=== PATIENT | female | born 1945 | race Caucasian/White ===

== ENCOUNTER 2019-09-06 14:19 | Outpatient (CLI) | payer MEDICARE, OTHER, SELFPAY ==
--- NOTE | ~2019-09-06 | XR_ITS ---
XR sinus min 3V 09/06/2019 14:46 Indication: Acute recurrent sinusitis Procedure: 5 views of the paranasal sinuses Comparison: No prior studies for comparison. Findings: There is opacification of the frontal sinuses. There is partial opacification the right max illary sinus. There is rightward nasal septal deviation. No air-fluid levels are demonstrated. Mastoi ds are pneumatized. Impression: 1: Opacification of the frontal and right maxillary sinuses, suspicious for sinusitis. Reviewed, dictated and finalized at location A. Impression: 1: Opacification of the frontal and right maxillary sinuses, suspicious for sin usitis.
[2019-09-06 14:41] LABS: Basophils Absolute Auto 0.1 K/mm3 (0.0-0.1); Basophils Percent Auto 0.9 % (0.2-1.2); Eosinophils Absolute Auto 0.2 K/mm3 (0-0.3); Eosinophils Percent Auto 3.5 % (0-4.4); Hematocrit 40.1 % (37.0-47.0); Hemoglobin 13.4 g/dL (12.0-15.0); Immature Granulocyte Absolute 0.01 K/mm3 (0.00-0.031); Immature Granulocyte Percent A 0.2 % (0-0.5); Lymphocytes Absolute Auto 2.45 K/mm3 (0.9-3.2); Lymphocytes Percent Auto 44.8 % (18.3-44.2); Mean Corpuscular HGB Conc 33.4 g/dl (32-36); Mean Corpuscular Hemoglobin 31.9 pg (26-34); Mean Corpuscular Volume 95.5 fl (80-100); Mean Platelet Volume 10.1 fl (7.4-10.4); Monocytes Absolute Auto 0.6 K/mm3 (0.1-0.6); Monocytes Percent Auto 11.3 % (2.6-8.5); Neutrophils Absolute Auto 2.2 K/mm3 (1.3-6.7); Neutrophils Percent Auto 39.3 % (45.5-73.1); Platelet Count Result 168 k/mm3 (150-375); Red Cell Distribution Width 13.2 % (11.5-14.5); White Blood Count 5.5 K/mm3 (4.5-10.0)
[2019-09-06 15:05] LABS: Erythrocyte Sedimentation Rate 20 mm/hr (0-20)
[2019-09-06 15:14] LABS: Blood Urea Nitrogen 19 mg/dL (7-17); CRP < 0.5 mg/dL (<1.0); Carbon Dioxide 30 mmol/L (22-30); Chloride 105 mmol/L (98-107); Estimated Glomerular Filt Rate 40; Glucose 100 mg/dL (65-105); Potassium 3.5 mmol/L (3.4-5.0); Sodium 141 mmol/L (137-145)
== END 2019-09-06 14:20 | disposition home or self-care (01) ==
PROVIDERS: PCP Internal Medicine; Visit Provider Internal Medicine
DX: J01.91 Acute recurrent sinusitis, unspecified (principal); M06.9 Rheumatoid arthritis, unspecified
CPT/HCPCS: 36415; 70220; 80048; 85025; 85652; 86140

== ENCOUNTER 2019-10-05 09:26 | Outpatient (CLI) | payer MEDICARE, OTHER, SELFPAY ==
--- NOTE | ~2019-10-05 | CT_ITS ---
EXAMINATION: CT abdomen pelvis w con DATE: 10/05/2019 11:16 INDICATION: Left upper quadrant and left lower quadrant abdominal pain TECHNIQUE: Computed tomography (CT) of the abdomen and pelvis was performed with 100 cc Omnipaque 350 intravenous contrast. Automated exposure control and iterative reconstruction technique were employe d. Exam dose: 869.58 mGy-cm total exam DLP. COMPARISON: 10/17/2014 CT pelvis examination FINDINGS: The lung bases are clear of infiltrate or consolidation. Heart size is within normal limits . No pericardial or pleural effusion. Status post cholecystectomy. No bile duct or pancreatic duct dilatation. No hepatic, splenic, pancreatic, and adrenal or renal space-occupying mass lesion is evident. No urin jonny tract calculus or hydroureteronephrosis. Normal caliber of the abdominal aorta with mild atherosclerotic ulcer location of the aorta and iliac arteries. No intraperitoneal or retroperitoneal or pelvic mass lesion or adenopathy or ascites. Normal appendix. Partial colon resection, with suture line at the distal sigmoid colon. Mild colonic diverticulosis; n o CT evidence of diverticulitis. No bowel obstruction or intraperitoneal free air. Small fat-containing umbilical hernia. Status post hysterectomy. The urinary bladder is unremarkable. Degenerative changes of the lower thoracic and lumbar spine. There are degenerative changes at the ap ophyseal joints with associated grade 1 anterolisthesis at L4-5. There is mild retrolisthesis at L5-S 1. No suspicious osteolytic or osteoblastic lesions are noted. IMPRESSION: Status post cholecystectomy Status post hysterectomy Partial colectomy Diverticulosis of the colon; no CT evidence of diverticulitis Reviewed, dictated and finalized at Location A. Reviewed, dictated and finalized at location A.
[2019-10-05 10:30] LABS: Basophils Absolute Auto 0.1 K/mm3 (0.0-0.1); Basophils Percent Auto 1.1 % (0.2-1.2); Eosinophils Absolute Auto 0.3 K/mm3 (0-0.3); Eosinophils Percent Auto 6.7 % (0-4.4); Hematocrit 39.3 % (37.0-47.0); Hemoglobin 13.3 g/dL (12.0-15.0); Immature Granulocyte Absolute 0.01 K/mm3 (0.00-0.031); Immature Granulocyte Percent A 0.2 % (0-0.5); Lymphocytes Absolute Auto 2.04 K/mm3 (0.9-3.2); Lymphocytes Percent Auto 45.3 % (18.3-44.2); Mean Corpuscular HGB Conc 33.8 g/dl (32-36); Mean Corpuscular Hemoglobin 32.2 pg (26-34); Mean Corpuscular Volume 95.2 fl (80-100); Mean Platelet Volume 10.8 fl (7.4-10.4); Monocytes Absolute Auto 0.6 K/mm3 (0.1-0.6); Monocytes Percent Auto 13.6 % (2.6-8.5); Neutrophils Absolute Auto 1.5 K/mm3 (1.3-6.7); Neutrophils Percent Auto 33.1 % (45.5-73.1); Platelet Count Result 188 k/mm3 (150-375); Red Blood Count 4.13 M/mm3 (4.2-5.4); Red Cell Distribution Width 12.8 % (11.5-14.5); White Blood Count 4.5 K/mm3 (4.5-10.0)
[2019-10-05 10:45] LABS: Blood Urea Nitrogen 20 mg/dL (7-17); Calcium 8.8 mg/dL (8.4-10.2); Carbon Dioxide 29 mmol/L (22-30); Chloride 105 mmol/L (98-107); Estimated Glomerular Filt Rate 44; Glucose 97 mg/dL (65-105); Potassium 3.7 mmol/L (3.4-5.0); Sodium 141 mmol/L (137-145)
== END 2019-10-05 09:27 | disposition home or self-care (01) ==
PROVIDERS: PCP Internal Medicine; Visit Provider Internal Medicine
DX: R10.12 Left upper quadrant pain (principal); R10.32 Left lower quadrant pain; K57.92 Diverticulitis of intestine, part unspecified, without perforation or abscess without bleeding
CPT/HCPCS: 36415; 74177; 80048; 85025; Q9967

== ENCOUNTER 2019-10-24 11:07 | Outpatient (CLI) | payer MEDICARE, OTHER, SELFPAY ==
--- NOTE | ~2019-10-24 | CT_ITS ---
EXAMINATION: CT chest wo con EXAM DATE: 10/24/2019 12:01 INDICATION: Solitary pulmonary nodule. TECHNIQUE: Spiral CT of the chest without contrast. Axial, coronal and sagittal images were reviewe d. Coronal maximum intensity pixel images of chest reviewed. The dose-length product (DLP) for this examination was 178.12 mGy-cm. The exposure was tailored according to patient size (auto mA exposur e control), and iterative reconstruction (ASIR) was used as additional dose reduction technique. Comp arison is made to prior examination from 10/22/2018. FINDINGS: Scattered predominantly pleural-based postinfectious residua is unchanged along with some biapical scarring. There is mild bronchiectasis. No new or suspicious pulmonary nodules. There is mil d emphysema. There are no pleural or pericardial effusions. Tracheobronchial tree is patent. The re is no mediastinal, hilar or axillary lymphadenopathy. There is no pneumothorax. Heart normal i n size. There is mild coronary arterial calcification, arterial sclerosis. There are cholecystecto my clips. There is thoracic spondylosis without osteoblastic or osteolytic lesions identified. IMPRESSION: 1. Mild emphysema and bronchiectasis. 2. Stable post infectious residua. Reviewed, dictated and finalized at location A.
== END 2019-10-24 11:08 | disposition home or self-care (01) ==
PROVIDERS: PCP Internal Medicine; Visit Provider Internal Medicine
DX: R91.1 Solitary pulmonary nodule (principal); J43.9 Emphysema, unspecified
CPT/HCPCS: 71250

== ENCOUNTER → 2019-12-29 14:21 | Outpatient (CLI) | payer MEDICARE, OTHER, SELFPAY ==
--- NOTE | ~2019-12-29 | MM_ITS ---
EXAMINATION: MM screening [facility] BI w devin HISTORY: Screening TECHNIQUE: Craniocaudal and mediolateral oblique 3-D tomosynthesis images were obtained and synthetic 2-D images were generated. CAD analysis was submitted and interpreted. COMPARISON: Comparison to multiple prior studies sequentially, with oldest reviewed study dated 08/2015. BREAST PARENCHYMAL COMPOSITION: There are scattered areas of fibroglandular density. FINDINGS: There is no evidence of suspicious mass, calcification, or architectural distortion to sugg est malignancy in either breast. There has been no suspicious interval change. IMPRESSION: 1. No mammographic evidence of malignancy. 2. Recommend routine screening mammography in one year. BI-RADS Category 1: Negative Reviewed, dictated and finalized at location A.
== END ==
PROVIDERS: Visit Provider Internal Medicine
DX: Z12.31 Encounter for screening mammogram for malignant neoplasm of breast (principal)
CPT/HCPCS: 77063; 77067

== ENCOUNTER 2020-05-09 07:34 | Outpatient (CLI) | payer MEDICARE, OTHER, SELFPAY ==
--- NOTE | 2020-06-20 21:15 | WPDHOMESLEEP ---
Sleep Study - Home Unattended Date of Study: 05/09/20 Ordering Provider: David Chowdary MD Interpreting Physician: Rhoda Dietrich MD Home Sleep Study Type: Apnea Link Air Height: 1.68 m Weight: 88.451 kg Body Mass Index: 31.4 Neck Circumference (inches): 14.5 [place]: 10 Reason for Sleep Study Waking throughout the night, palpitations, excessive daytime sleepiness Sleep History Saira Egan is a 75-year-old female who has poor quality sleep. She wakes during the night, sometimes with a stuffy nose, sometimes with pain in her flanks. Her spouse reports that she snores. She has snorted at night, waking herself. 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 She has had 2 previous sleep studies at [facility]. The 2nd sleep study found apnea only in the supine position. She had no intervention since she usually sleeps on her side. She frequently snores, occasionally loudly enough that others complain about it. She occasionally awakens at night with coughing. She rarely awakens from sleep with shortness of breath. She notices fluttering in her heart at night. This happens about every 2 hours. She frequently has trouble sleep with a cold. She rarely wakes up gasping for breath during the night. She rarely has breathing problems at night reported to her by others. She occasionally still easily at night and occasionally notices her heart pounding or beating irregularly at night. She frequently falls asleep during the day, occasionally involuntarily, never while driving. She does not have loss of muscle tone with stroke. She does not fall asleep while exerting physical effort. She does not have daytime difficulties due to excessive sleepiness. She does not feel paralyzed on waking or falling asleep. She rarely has vivid dreamlike scenes upon awakening or falling asleep. She is not afraid to go to sleep. She rarely has nightmares. She rarely remembers her dreams. She occasionally has racing thoughts. She rarely feels sad, depressed or anxious. She occasionally has muscular tension. She does not notice parts of her body jerking. She frequently kicks at night. She rarely has crawling and aching feelings in her legs at night. She occasionally has leg pain during the night. She does not have morning jaw pain. She does not grind her teeth during sleep. She frequently is bothered by pain during the day, frequently is awakened by pain at night and frequently wakes up feeling stiff in the morning. She occasionally wakes up with sore or achy muscles, and rarely wakes up with pain in the neck and spine. She has memory problems and concentration difficulties. She has insomnia. She has frequent morning headaches, palpitations and fatigue. She takes antacids regularly. Normal bedtime is between 11:00 p.m. and 11:30 p.m., taking under 15 minutes to fall asleep. She typically wakes 3-4 times at night. While awake she will turn over and repositioned in bed. Sometimes she sits on the side of the bed. Rarely she walked to the kitchen for a drink of water. She wakes in the morning between 630 and 7:00 a.m.. Weekend schedule is the same. She estimates 6-7 hours of sleep at night plus a nap. Sometimes she wakes up too early and cannot get back to sleep. She takes naps in the afternoon. A short nap may be refreshing. She is usually drowsy in the morning for 2 hours or longer. She feels better in the evening compared to the morning. Habits: She never smoked tobacco. Caffeine 1 coffee and 1 soda daily. No alcohol. No recreational drugs. [facility] Past Medical History Medical History (Updated 06/20/20 @ 21:35 by Rhoda Dietrich MD) Asthma Benign essential hypertension Blurred vision, right eye BMI 31.0-31.9,adult Cataracts, bilateral Colon cancer screening Coronary artery calcification seen on CT scan Creatinine elevation Diverticulitis Encounter for routine adult health examination wit
[2020-06-20 21:41] VITALS: BMI 31.4
== END 2020-05-09 07:35 | disposition home or self-care (01) ==
LOC: ANHCSM 07:34
PROVIDERS: PCP Internal Medicine; Visit Provider Internal Medicine
DX: G47.33 Obstructive sleep apnea (adult) (pediatric) (principal)
CPT/HCPCS: 95806

== ENCOUNTER 2020-06-26 01:26 | Outpatient (CLI) | payer MEDICARE, OTHER, SELFPAY ==
[2020-06-26 19:18] LABS: SARS-CoV-2 RNA PCR Negative
== END 2020-06-26 01:27 | disposition home or self-care (01) ==
LOC: ANHCOVIDDT 01:26
PROVIDERS: PCP Internal Medicine; Visit Provider Internal Medicine Critical Care Medicine
DX: Z01.812 Encounter for preprocedural laboratory examination (principal); Z20.822 Contact with and (suspected) exposure to COVID-19
CPT/HCPCS: C9803; U0003; U0005

== ENCOUNTER 2020-06-28 09:24 | Outpatient (CLI) | payer MEDICARE, OTHER, SELFPAY ==
--- NOTE | 2020-07-25 18:40 | WPDSLEEPSTUD ---
Sleep Study Date of Study: 06/28/20 Ordering Provider: David Chowdary MD Interpreting Physician: Rhoda Dietrich MD Sleep Study Type: CPAP Titration Height: 1.68 m Weight: 88.451 kg Body Mass Index: 31.4 Neck Circumference: 33.02 cm [place]: 10 Reason for Sleep Study Home Sleep Test May 09, 2020 with AHI of 8, snoring and desaturation to 90%, several central apneas; patient presents for CPAP titration. Sleep History Saira Egan is a 75-year-old female who has poor quality sleep. She wakes during the night, sometimes with a stuffy nose, sometimes with pain in her flanks. Her spouse reports that she snores. She has snorted at night, waking herself. 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 She has had 2 previous sleep studies at [facility], which is now [facility] in [place]. The 2nd sleep study found apnea only in the supine position. She had no intervention since she usually sleeps on her side. She frequently snores, occasionally loudly enough that others complain about it. She occasionally awakens at night with coughing. She rarely awakens from sleep with shortness of breath. She notices fluttering in her heart at night. This happens about every 2 hours. She frequently has trouble sleep with a cold. She rarely wakes up gasping for breath during the night. She rarely has breathing problems at night reported to her by others. She occasionally sweats excessively at night and occasionally notices her heart pounding or beating irregularly at night. She frequently falls asleep during the day, occasionally involuntarily, never while driving. She does not have loss of muscle tone with stroke. She does not fall asleep while exerting physical effort. She does not have daytime difficulties due to excessive sleepiness. She does not feel paralyzed on waking or falling asleep. She rarely has vivid dreamlike scenes upon awakening or falling asleep. She is not afraid to go to sleep. She rarely has nightmares. She rarely remembers her dreams. She occasionally has racing thoughts. She rarely feels sad, depressed or anxious. She occasionally has muscular tension. She does not notice parts of her body jerking. She frequently kicks at night. She rarely has crawling and aching feelings in her legs at night. She occasionally has leg pain during the night. She does not have morning jaw pain. She does not grind her teeth during sleep. She frequently is bothered by pain during the day, frequently is awakened by pain at night and frequently wakes up feeling stiff in the morning. She occasionally wakes up with sore or achy muscles, and rarely wakes up with pain in the neck and spine. She has memory problems and concentration difficulties. She has insomnia. She has frequent morning headaches, palpitations and fatigue. She takes antacids regularly. Normal bedtime is between 11:00 p.m. and 11:30 p.m., falling asleep within 15 minutes. She typically wakes 3-4 times at night. While awake, she will turn over and repositioned in bed. Sometimes she sits on the side of the bed. Rarely she walks to the kitchen for a drink of water. She wakes in the morning between 6:30 and 7:00 a.m.. Weekend schedule is the same. She estimates 6-7 hours of sleep at night plus a nap. Sometimes she wakes up too early and cannot get back to sleep. She takes naps in the afternoon. A short nap may be refreshing. She is usually drowsy in the morning for 2 hours or longer. She feels better in the evening compared to the morning. Habits: She never smoked tobacco. Caffeine 1 coffee and 1 soda daily. No alcohol. No recreational drugs. [facility] Past Medical History Medical History (Updated 07/25/20 @ 19:20 by Rhoda Dietrich MD) Asthma Benign essential hypertension Blurred vision, right eye BMI 31.0-31.9,adult BMI 32.0-32.9,adult Cataracts, bilateral CKD (chronic kidney disease) Colon cancer screening Coronary artery ca
[2020-07-25 18:42] VITALS: BMI 31.4
== END 2020-06-28 09:25 | disposition home or self-care (01) ==
LOC: ANHCSM 09:25
PROVIDERS: PCP Internal Medicine; Visit Provider Internal Medicine
DX: G47.33 Obstructive sleep apnea (adult) (pediatric) (principal)
CPT/HCPCS: 95811

== ENCOUNTER → 2021-01-01 09:46 | Outpatient (CLI) | payer MEDICARE, OTHER, SELFPAY ==
--- NOTE | ~2021-01-01 | CT_ITS ---
EXAMINATION: CT diagnostic chest wo con DATE: 01/01/2021 10:12 INDICATION: Pulmonary nodules TECHNIQUE: Computed tomography (CT) of the chest was performed without intravenous contrast. The dose -length product (DLP) was 439.88 mGy-cm. Automated exposure control and iterative reconstruction tech [employer] were employed. COMPARISON: 10/24/2019, 10/22/2018 FINDINGS: There is stable right upper lobe nodules measuring up to 4 mm. A stable 3 mm nodule is pres ent in the right lower lobe. Stable nodules are also noted in the major fissures, likely fissural lym ph nodes. No new pulmonary nodules are identified. There is atelectasis of the lingula and middle lob e. There is no pleural effusion or pneumothorax. Scarring is noted in the lung apices. No pathologica lly enlarged thoracic lymph nodes are identified. The heart size is normal. Calcified coronary artery atherosclerosis is noted. The gallbladder is surgically absent. A small sliding hiatal hernia is not ed. There is mild thoracic spondylosis. IMPRESSION: 1. Stable lung nodules consistent with old granulomatous disease. Reviewed, dictated and finalized at location B.
--- NOTE | ~2021-01-01 | DEXA_ITS ---
Bone Density Report Name: Saira Egan Age: 75 Sex: Female Ethnicity: White Date of : 1945 Indication: monitoring treatment; history of glucocorticoids; prior fracture; asthma or emphysema; hysterectomy; rheumatoid arthritis; postmenopausal Referring Provider: CAMPBELL VALENCIA Study: Bone densitometry was performed. Exam Date: January 01, 2021 Accession number: [id number] Bone Density: Region BMD T-score Z-score Classification AP Spine (L1-L4) 1.195 1.3 3.7 Normal Femoral Neck (Left) 0.711 -1.2 0.8 Osteopenia Total Hip (Left) 0.844 -0.8 0.9 Normal Femoral Neck (Right) 0.800 -0.4 1.6 Normal Total Hip (Right) 0.872 -0.6 1.1 Normal Total Hip Mean 0.858 -0.7 1.0 Normal World Health Organization criteria for BMD impression classify patients as: Normal (T-score at or above -1.0), Osteopenia (T-score between -1.0 and -2.5), or Osteoporosis (T-score at or below -2.5). 10-year Fracture Risk: FRAX not reported because: Prior hip or vertebral fracture Treated for osteoporosis Previous Exams: Region Exam Age BMD T-score BMD Change BMD Change Date g/cm2 vs Baseline vs Previous AP Spine(L1-L4) 01/01/2021 75 1.195 1.3 0.133* 0.084* 11/18/2018 73 1.112 0.6 0.049* 0.005 08/28/2016 71 1.107 0.5 0.044 0.065 08/27/2015 70 1.042 0.0 -0.020 -0.020 08/18/2013 68 1.063 0.1 Total Hip(Left) 01/01/2021 75 0.844 -0.8 -0.049* 0.002 11/18/2018 73 0.842 -0.8 -0.051* 0.012 08/28/2016 71 0.830 -0.9 -0.064 0.024 08/27/2015 70 0.806 -1.1 -0.088* -0.088* 08/18/2013 68 0.894 -0.4 Total Hip(Right) 01/01/2021 75 0.872 -0.6 -0.032* 0.011 11/18/2018 73 0.861 -0.7 -0.042* 0.027 08/28/2016 71 0.834 -0.9 -0.070 0.017 08/27/2015 70 0.817 -1.0 -0.086* -0.086* 08/18/2013 68 0.903 -0.3 *Denotes significance at 95% confidence level, LSC for AP Spine = 0.022 g/cm2, LSC for Total Hip = 0.027 g/cm2 Clinical Information Provided by Patient: Have had a previous hip or vertebral fracture Has had a low trauma fracture Has taken Glucocorticoids Has rheumatoid arthritis Is being treated for osteoporosis Has used the following medications: Prolia (i.e. denosumab), Vitamin D, Calcium, PREDNESONE Has the following medical conditions: Asthma or Emphysema, Hysterectomy
--- NOTE | ~2021-01-01 | MM_ITS ---
EXAMINATION: MM screening [facility] BI w devin HISTORY: Screening TECHNIQUE: Craniocaudal and mediolateral oblique 3-D tomosynthesis images were obtained and synthetic 2-D images were generated. CAD analysis was submitted and interpreted. COMPARISON: Comparison to multiple prior studies sequentially, with oldest reviewed study dated 10/2016. BREAST PARENCHYMAL COMPOSITION: There are scattered areas of fibroglandular density. FINDINGS: There is no evidence of suspicious mass, calcification, or architectural distortion to sugg est malignancy in either breast. There has been no suspicious interval change. IMPRESSION: 1. No mammographic evidence of malignancy. 2. Recommend routine screening mammography in one year. BI-RADS Category 1: Negative Reviewed, dictated and finalized at location A.
== END ==
PROVIDERS: Visit Provider Internal Medicine
DX: Z12.31 Encounter for screening mammogram for malignant neoplasm of breast (principal); R91.8 Other nonspecific abnormal finding of lung field; Z78.0 Asymptomatic menopausal state; M85.852 Other specified disorders of bone density and structure, left thigh; R92.2 Inconclusive mammogram
CPT/HCPCS: 71250; 77062; 77063; 77066; 77067; 77080; G0279

== ENCOUNTER → 2022-01-16 09:46 | Outpatient (CLI) | payer MEDICARE, SELFPAY ==
--- NOTE | ~2022-01-16 | CT_ITS ---
EXAMINATION: CT diagnostic chest wo con DATE: 01/16/2022 10:05 INDICATION: Lung nodules TECHNIQUE: Computed tomography (CT) of the chest was performed without intravenous contrast. The dose -length product (DLP) was 121.27 mGy-cm. Automated exposure control and iterative reconstruction tech [employer] were employed. COMPARISON: 01/01/2021 FINDINGS: Stable nodules of the right upper lobe measure up to 4 mm. There is a stable 3 mm nodule of the right lower lobe. No new pulmonary nodules are identified. Fissural lymph nodes are noted in the major fissures. No pathologically enlarged thoracic lymph nodes are identified. The heart size is no rmal. Scarring is noted in the lung apices. There is calcified coronary artery atherosclerosis. A sma ll sliding hiatal hernia is noted. The gallbladder is surgically absent. IMPRESSION: 1. Stable lung nodules, consistent with old granulomatous disease. Reviewed, dictated and finalized at location B.
== END ==
PROVIDERS: PCP Internal Medicine; Visit Provider Internal Medicine
DX: R91.8 Other nonspecific abnormal finding of lung field (principal)
CPT/HCPCS: 71250

== ENCOUNTER → 2022-03-05 13:22 | Outpatient (CLI) | payer MEDICARE, SELFPAY ==
--- NOTE | ~2022-03-05 | MM_ITS ---
EXAMINATION: MM screening [facility] BI w devin HISTORY: Screening TECHNIQUE: Craniocaudal and mediolateral oblique 3-D tomosynthesis images were obtained and synthetic 2-D images were generated. CAD analysis was submitted and interpreted. COMPARISON: Comparison to multiple prior studies sequentially, with oldest reviewed study dated 10/2016. BREAST PARENCHYMAL COMPOSITION: There are scattered areas of fibroglandular density. FINDINGS: There is no evidence of suspicious mass, calcification, or architectural distortion to sugg est malignancy in either breast. There has been no suspicious interval change. IMPRESSION: 1. No mammographic evidence of malignancy. 2. Recommend routine screening mammography in one year. BI-RADS Category 1: Negative Reviewed, dictated and finalized at location A.
== END ==
PROVIDERS: PCP Internal Medicine; Visit Provider Internal Medicine
DX: Z12.31 Encounter for screening mammogram for malignant neoplasm of breast (principal)
CPT/HCPCS: 77063; 77067

== ENCOUNTER 2022-07-03 10:14 | Outpatient (CLI) | payer MEDICARE, SELFPAY ==
--- NOTE | ~2022-07-03 | XR_ITS ---
AP and oblique views of the bilateral ribs, and PA and lateral chest radiographs Clinical History: Pain Findings: There is an oblique, mildly displaced fracture at the anterior left sixth rib. No other rib fracture identified. Lungs are clear, without focal consolidation or pleural effusion. Cardiomediast inal contour is within normal limits. Soft tissues are unremarkable. Impression: Oblique, mildly displaced fracture at the anterior left sixth rib. No other fracture seen. Clear lungs. Reviewed, dictated and finalized at location . 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 No other fracture seen. Clear lungs.
== END 2022-07-03 10:15 | disposition home or self-care (01) ==
PROVIDERS: PCP Internal Medicine; Visit Provider Internal Medicine
DX: R07.81 Pleurodynia (principal); S22.32XA Fracture of one rib, left side, initial encounter for closed fracture; X58.XXXA Exposure to other specified factors, initial encounter
CPT/HCPCS: 71046; 71110

== ENCOUNTER → 2023-03-09 10:19 | Outpatient (CLI) | payer MEDICARE, SELFPAY ==
--- NOTE | ~2023-03-09 | DEXA_ITS ---
Bone Density Report Name: PEARL WILSON Age: 78 Sex: Female Ethnicity: White Date of : 1945 Indication: monitoring treatment; history of glucocorticoids; prior fracture; asthma or emphysema; hysterectomy; rheumatoid arthritis; postmenopausal Referring Provider: CAMPBELL VALENCIA Study: Bone densitometry was performed. Exam Date: March 09, 2023 Accession number: [id number] Bone Density: Region BMD T-score Z-score Classification AP Spine (L1-L4) 1.240 1.8 4.2 Normal Femoral Neck (Left) 0.738 -1.0 1.1 Normal Total Hip (Left) 0.864 -0.6 1.2 Normal Femoral Neck (Right) 0.790 -0.5 1.6 Normal Total Hip (Right) 0.886 -0.5 1.4 Normal Total Hip Mean 0.875 -0.6 1.3 Normal World Health Organization criteria for BMD impression classify patients as: Normal (T-score at or above -1.0), Osteopenia (T-score between -1.0 and -2.5), or Osteoporosis (T-score at or below -2.5). 10-year Fracture Risk: FRAX not reported because: All T-scores for Spine Total, Hip Total, Femoral Neck at or above -1.0 Prior hip or vertebral fracture Treated for osteoporosis Previous Exams: Region Exam Age BMD T-score BMD Change BMD Change Date g/cm2 vs Baseline vs Previous AP Spine(L1-L4) 03/09/2023 78 1.240 1.8 0.178* 0.045* 01/01/2021 75 1.195 1.3 0.133* 0.084* 11/18/2018 73 1.112 0.6 0.049* 0.005 08/28/2016 71 1.107 0.5 0.044 0.065 08/27/2015 70 1.042 0.0 -0.020 -0.020 08/18/2013 68 1.063 0.1 Total Hip(Left) 03/09/2023 78 0.864 -0.6 -0.029* 0.020 01/01/2021 75 0.844 -0.8 -0.049* 0.002 11/18/2018 73 0.842 -0.8 -0.051* 0.012 08/28/2016 71 0.830 -0.9 -0.064 0.024 08/27/2015 70 0.806 -1.1 -0.088* -0.088* 08/18/2013 68 0.894 -0.4 Total Hip(Right) 03/09/2023 78 0.886 -0.5 -0.018 0.014 01/01/2021 75 0.872 -0.6 -0.032* 0.011 11/18/2018 73 0.861 -0.7 -0.042* 0.027 08/28/2016 71 0.834 -0.9 -0.070 0.017 08/27/2015 70 0.817 -1.0 -0.086* -0.086* 08/18/2013 68 0.903 -0.3 *Denotes significance at 95% confidence level, LSC for AP Spine = 0.022 g/cm2, LSC for Total Hip = 0.027 g/cm2 Clinical Information Provided by Patient: Have had a previous hip or vertebral fracture Has had a low trauma
--- NOTE | ~2023-03-09 | MM_ITS ---
EXAMINATION: MM screening [facility] BI w devin HISTORY: Screening TECHNIQUE: Craniocaudal and mediolateral oblique 3-D tomosynthesis images were obtained and synthetic 2-D images were generated. CAD analysis was submitted and interpreted. COMPARISON: Comparison to multiple prior studies sequentially, with oldest reviewed study dated 10/2016. BREAST PARENCHYMAL COMPOSITION: There are scattered areas of fibroglandular density. FINDINGS: There is no evidence of suspicious mass, calcification, or architectural distortion to sugg est malignancy in either breast. There has been no suspicious interval change. IMPRESSION: 1. No mammographic evidence of malignancy. 2. Recommend routine screening mammography in one year. BI-RADS Category 1: Negative Reviewed, dictated and finalized at location A.
--- NOTE | ~2023-03-09 | XR_ITS ---
Clinical Indication: Rheumatoid arthritis PA and lateral views of the chest: Comparison: 07/03/2022 Findings: Questionable minimal chronic interstitial disease. No focal consolidation or pleural effusi on. Cardiomediastinal silhouette is within normal limits. Bones and soft tissues are unremarkable. Impression: Questionable minimal chronic interstitial disease. Reviewed, dictated and finalized at location . Impression: Questionable minimal chronic interstitial disease.
== END ==
PROVIDERS: PCP Internal Medicine; Visit Provider Internal Medicine
DX: Z12.31 Encounter for screening mammogram for malignant neoplasm of breast (principal); Z78.0 Asymptomatic menopausal state; M06.9 Rheumatoid arthritis, unspecified; R69 Illness, unspecified; M85.88 Other specified disorders of bone density and structure, other site
CPT/HCPCS: 71046; 77063; 77067; 77080

== ENCOUNTER 2023-03-13 13:56 | Outpatient (CLI) | payer MEDICARE, SELFPAY ==
--- NOTE | ~2023-03-13 | CT_ITS ---
EXAMINATION: CT diagnostic chest wo con DATE: 03/13/2023 14:40 INDICATION: Interstitial lung disease TECHNIQUE: Computed tomography (CT) of the chest was performed without intravenous contrast. The dose -length product (DLP) was 238.71 mGy-cm. Automated exposure control and iterative reconstruction tech nique were employed. COMPARISON: 01/16/2022 FINDINGS: There is scarring of the lung apices. There is mild emphysema. Small stable pulmonary nodul es measure up to 4 mm in the right upper lobe. No pleural effusion or pneumothorax. Fissural lymph no maggy are noted. No pathologically enlarged thoracic lymph nodes are identified. The heart size is norm al. Calcified coronary artery atherosclerosis is noted. Changes of cholecystectomy are noted. IMPRESSION: 1. Stable lung nodules, consistent with old granulomatous disease. Reviewed, dictated and finalized at location F.
== END 2023-03-13 13:57 | disposition home or self-care (01) ==
PROVIDERS: PCP Internal Medicine; Visit Provider Physician Assistant
DX: J84.9 Interstitial pulmonary disease, unspecified (principal); M06.9 Rheumatoid arthritis, unspecified; R91.8 Other nonspecific abnormal finding of lung field
CPT/HCPCS: 71250

== ENCOUNTER 2023-12-31 13:15 | Outpatient (CLI) | payer MEDICARE, SELFPAY ==
--- NOTE | ~2023-12-31 | US_ITS ---
Renal-Bladder ultrasound Clinical History: Chronic kidney disease Technique: Real-time sonographic imaging of the kidneys and urinary bladder was performed. Findings: The right kidney measures 10.7 cm in length and the left kidney measures 10.0 cm. There is no hydronephrosis or renal calculus identified. Renal cortical echogenicity is within normal limits. No renal mass lesion is identified. The urinary bladder is moderately distended at the time of this exam. No intraluminal echoes are iden tified. No abnormal wall thickening is seen. Impression: Unremarkable ultrasound of the kidneys and urinary bladder. Reviewed, dictated and finalized at location M. Impression: Unremarkable ultrasound of the kidneys and urinary bladder.
== END 2023-12-31 13:16 ==
LOC: MICIMG 13:16
PROVIDERS: PCP Internal Medicine; Visit Provider Internal Medicine
DX: N18.2 Chronic kidney disease, stage 2 (mild) (principal)
CPT/HCPCS: 76775

== ENCOUNTER 2024-04-05 13:53 | Outpatient (CLI) | payer MEDICARE, SELFPAY ==
--- NOTE | ~2024-04-05 | XR_ITS ---
CHEST RADIOGRAPH, PA AND LATERAL CLINICAL HISTORY: TB screen . COMPARISON: 03/09/2023 TECHNIQUE: PA and lateral views of the chest. FINDINGS The cardiomediastinal silhouette is unremarkable. The lungs are clear. Visualized osseous structures and soft tissues are unremarkable. No findings to suggest the presence of active or dormant tuberculosis infection IMPRESSION: No focal infiltrate or effusion. Reviewed, dictated and finalized at location A. ER AND PRESSER
== END 2024-04-05 13:54 | disposition home or self-care (01) ==
LOC: MICIMG 13:57
PROVIDERS: PCP Internal Medicine; Visit Provider Internal Medicine
DX: Z51.81 Encounter for therapeutic drug level monitoring (principal); M05.79 Rheumatoid arthritis with rheumatoid factor of multiple sites without organ or systems involvement; Z79.899 Other long term (current) drug therapy
CPT/HCPCS: 71046

== ENCOUNTER 2024-05-26 13:24 | Outpatient (CLI) | payer MEDICARE, SELFPAY ==
--- NOTE | ~2024-05-26 | MM_ITS ---
EXAMINATION: MM screening [facility] BI w devin HISTORY: Screening mammogram TECHNIQUE: Craniocaudal and mediolateral oblique 3-D tomosynthesis images were obtained and synthetic 2-D images were generated. CAD analysis was submitted and interpreted. COMPARISON: 03/09/2023, 03/05/2022, 01/01/2021 BREAST PARENCHYMAL COMPOSITION:Not Dense. There are scattered areas of fibroglandular density. FINDINGS: No suspicious mass, calcification, or architectural distortion are identified in either kerri ast to suggest malignancy. There has been no suspicious interval change. IMPRESSION: No mammographic evidence of malignancy. Recommend routine screening mammography in one year. BI-RADS Category 1: Negative Reviewed, dictated and finalized at location . ER
== END 2024-05-26 13:25 | disposition home or self-care (01) ==
PROVIDERS: PCP Internal Medicine; Visit Provider Internal Medicine
DX: Z12.31 Encounter for screening mammogram for malignant neoplasm of breast (principal)
CPT/HCPCS: 77063; 77067

== ENCOUNTER 2024-06-11 11:34 | Emergency (ER) | payer MEDICARE, SELFPAY ==
--- NOTE | ~2024-06-11 | CT_ITS ---
EXAMINATION: CT brain wo con DATE: 06/11/2024 14:17 INDICATION: Right side headache . TECHNIQUE: Computed tomography (CT) of the head was performed without intravenous contrast. The mA wa s adjusted according to patient size. Iterative reconstruction technique was employed. The dose-lengt h product was 605.33 mGy-cm. COMPARISON: None. FINDINGS: No acute intracranial hemorrhage or extra-axial fluid collection. No hydrocephalus, mass, or herniation. No acute ischemic infarct. Unremarkable dural venous sinus attenuation. No acute osseous abnormality. The aerated spaces are clear. Mild intracranial calcifications. Bilateral lens replacements. IMPRESSION: No acute intracranial process. Reviewed, dictated and finalized at location K. RNMENT AFFAIRS RESEARCHER
[2024-06-11 11:40] VITALS: BP 158/68; PULSE 55; RESP 18; TEMP 36.4; O2SAT 100
[2024-06-11 13:25] VITALS: BP 167/65; PULSE 48; RESP 14; O2SAT 99
[2024-06-11] MEDS: ACETAMINOPHEN 500 MG TABLET 1000 MG PO (13:39)
[2024-06-11 13:48] LABS: Eosinophils Absolute Auto 0.2 K/mm3 (0-0.3); Hematocrit 40.4 % (37.0-47.0); Hemoglobin 13.5 g/dL (12.0-15.0); Immature Granulocyte Absolute 0.01 K/mm3 (0.00-0.031); Immature Granulocyte Percent A 0.2 % (0-0.5); Lymphocytes Percent Auto 40.6 % (18.3-44.2); Mean Corpuscular HGB Conc 33.4 g/dl (32-36); Mean Corpuscular Hemoglobin 32.8 pg (26-34); Mean Corpuscular Volume 98.1 fl (80-100); Mean Platelet Volume 9.8 fl (7.4-10.4); Monocytes Absolute Auto 0.6 K/mm3 (0.1-0.6); Monocytes Percent Auto 14.6 % (2.6-8.5); Neutrophils Absolute Auto 1.6 K/mm3 (1.3-6.7); Neutrophils Percent Auto 38.6 % (45.5-73.1); Platelet Count Result 158 k/mm3 (150-375); Red Blood Count 4.12 M/mm3 (4.2-5.4); Red Cell Distribution Width 14.9 % (11.5-14.5); White Blood Count 4.2 K/mm3 (4.5-10.0)
[2024-06-11 14:01] LABS: Alanine Aminotransferase 27 U/L (6-35); Albumin Level 4.3 g/dL (3.5-5.1); Alkaline Phosphatase 78 U/L (38-126); Anion Gap 6 mmol/L (4-12); Aspartate Amino Transferase 32 U/L (14-36); Bilirubin,Total 0.5 mg/dL (0.2-1.3); Blood Urea Nitrogen 24 mg/dL (7-17); CRP 0.8 mg/dL (<1.0); Calcium 9.3 mg/dL (8.4-10.2); Carbon Dioxide 29 mmol/L (22-30); Chloride 106 mmol/L (98-107); Estimated CRCL calculation 36 ml/min; Estimated Glomerular Filt Rate 40; Glucose 99 mg/dL (65-110); Potassium 4.5 mmol/L (3.4-5.0); Sodium 141 mmol/L (137-145)
[2024-06-11 14:27] LABS: Erythrocyte Sedimentation Rate 30 mm/hr (0-20)
--- NOTE | 2024-06-11 14:58 | ED.GENADULT ---
HPI - General Adult General Chief complaint: Unspecified Stated complaint: Headache Time Seen by Provider: 06/11/24 12:32 Source: patient Mode of arrival: ambulatory Limitations: no limitations History of Present Illness HPI narrative: This is a 79-year-old female, with history of rheumatoid arthritis, presents to the emergency department complaining of new onset headache began this morning. The patient's describes the headache as sharp, rated 6/10 at maximum and 2/10 at present time. They are located on the right side of the head without other radiation. She denies associated weakness, numbness, change/ loss of vision or hearing. She has no other complaints at this time. Related Data Home Medications ?Medication ?Instructions ?Recorded ?Confirmed ?Last Taken ?Type calcium 600 mg (as carbonate)-vit 1 tablet PO DAILY 06/14/19 05/23/24 Unknown History D3 20 mcg (800 unit) chewable tablet (Caltrate plus D) etanercept 50 mg/mL (1 mL) 50 mg subcut WEEKLY 06/14/19 05/23/24 Unknown History subcutaneous syringe (Enbrel) mecobalamin (vitamin B12) 1,000 1,000 mcg sublingual DAILY 06/14/19 05/23/24 Unknown History mcg disintegrating tablet,sublingual methotrexate sodium 2.5 mg tablet 15 mg PO WEEKLY 11/01/20 05/23/24 Unknown History terbinafine HCl 250 mg tablet 250 mg PO .7 days.month 05/05/22 05/23/24 Unknown History biotin 1 mg capsule 1 mg PO DAILY 01/13/24 05/23/24 Unknown History folic acid 1 mg tablet 1 mg PO DAILY 01/13/24 05/23/24 Unknown History loratadine 10 mg tablet (Allergy 10 mg PO DAILY 01/13/24 05/23/24 Unknown History Relief (loratadine)) omeprazole 20 mg capsule,delayed 20 mg PO DAILY 01/13/24 05/23/24 Unknown History release vitamin B complex 1 tablet PO DAILY 01/13/24 05/23/24 Unknown History Probiotic (Align) BYMOUTH 05/23/24 05/23/24 Unknown History acetaminophen 500 mg capsule 500 mg PO DAILY 05/23/24 05/23/24 Unknown History triamcinolone acetonide 55 mcg 2 spray intranasal DAILY PRN 05/23/24 05/23/24 Unknown History nasal spray aerosol (Nasacort) Allergies Allergy/AdvReac Type Severity Reaction Status Date / Time alendronate sodium Allergy Unknown ASTHMA Verified 05/23/24 10:28 EXACERBATION cefprozil Allergy Unknown RASH Verified 05/23/24 10:28 chlorpheniramine Allergy Unknown RASH Verified 05/23/24 10:28 diflunisal Allergy Unknown NAUSEA, Verified 05/23/24 10:28 VOMITING, RASH doxycycline Allergy Unknown RASH Verified 05/23/24 10:28 sulfamethoxazole Allergy Unknown Nausea and Verified 05/23/24 10:28 Vomiting trimethoprim Allergy Unknown Nausea and Verified 05/23/24 10:28 Vomiting TUMERIC Allergy Intermediate Wheezing Uncoded 05/23/24 10:28 ATROPINE SULFATE Allergy Unknown RASH Uncoded 05/23/24 10:28 BROMPHENIRAMINE MALEATE Allergy Unknown RASH Uncoded 05/23/24 10:28 CIPROFLOXACIN HCL Allergy Unknown RASH Uncoded 05/23/24 10:28 DEXTROMETHORPHAN HBR Allergy Unknown RASH Uncoded 05/23/24 10:28 DIPHENHYDRAMINE HCL Allergy Unknown RASH Uncoded 05/23/24 10:28 DIPHENOXYLATE HCL Allergy Unknown RASH Uncoded 05/23/24 10:28 METRONIDAZOLE HCL Allergy Unknown NAUSEA, Uncoded 05/23/24 10:28 VOMITING PHENYLPROPANOLAMINE HCL Allergy Unknown RASH Uncoded 05/23/24 10:28 PSEUDOEPHEDRINE HCL Allergy Unknown Rash Uncoded 05/23/24 10:28 Review of Systems Review of Systems: All systems reviewed & are unremarkable except as noted in HPI and below PMFSH Past Medical History Medical History (Updated 06/11/24 @ 15:00 by Hawk Aguilar MD) BMI 28.0-28.9,adult Peripheral neuropathy Personal history of COVID-19 Sore throat BMI 29.0-29.9,adult Urinary incontinence Osteoporosis IGT (impaired glucose tolerance) 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 Chronic cough COVID May 2022, Rx Paxlovid Trochanteric bursitis of left hip BMI 30.0-30.9,adult Neuroma Encounter for Medicare annual wellness exam Multiple drug allergies MALCOLM on CPAP CKD (chronic kidney disease) BMI 32.0-32.9,adult Obstructive sleep apnea (~04/2020) Sinusitis, chronic Pelvis fracture 2014 Asthma Lung nodules Hyperglycemia, unspecified Coronary artery calcification seen on CT scan History of cataract Cataracts, bilateral Follow up LLQ abdominal pain Diverticulitis LUQ abdominal pain Blurred vision, right eye SVT (supraventricular tachycardia) Reactive airway disease Creatinine elevation Hypersomnolence Multiple allergies GERD (gastroesophageal reflux disease) Insomnia BMI 31.0-31.9,adult Encounter for routine adult health examination without abnormal findings Colon cancer screening Vitamin B12 deficiency Osteopenia Rheumatoid arthritis Hypothyroidism (acquired) Benign essential hypertension On intermediate teacher drug therapy Surgical History Surgical History S/P cataract surgery Bilateral 2020 History of sinus surgery H/O total knee replacement bilateral H/O hysterectomy with oophorectomy Hx of cholecystectomy History of tonsillectomy Family History Family History Other Family history of coronary artery disease Social History Social History Smoking status: Never smoker Second hand tobacco smoke exposure: No Alcohol intake: current Lack of Transportation: No Lack of Food: Never True Current Housing: I Have Housing Concerned About Future Housing: No Difficulty Paying Gas/Electric Bills: No Difficulty Paying for Meds: No Currently Unemployed: No Education: Bachelor's Degree Difficulty w/ Childcare or Family Care: No Living arrangements: with family Gender identity (if verbalized by the patient): Female Exam Narrative: GENERAL: Well-developed, well-nourished, and in no acute distress. HEAD: Normocephalic, atraumatic. no palpable, pulsatile mass of either bahai. EYES: PERRLA and EOMI. ENT: Nares clear, no rhinorrhea or epistaxis. Mucous membranes moist. Oropharynx without tonsillar hypertrophy exudate or other lesions. Bilateral TMs pearly williamson nonbulging CHEST: Clear to auscultation. No respiratory distress. No wheezes rales or rhonchi HEART: Regular rate and rhythm. No murmur heard. Normal peripheral pulses. EXTREMITIES: Normal range of motion. No edema. SKIN: Warm, dry, no rash. NEURO: Alert and oriented x3. Strength 5/5 in all extremities, sensation intact bilaterally, no noted ataxia, cranial nerves 2-12 intact PSYCH: Normal mood and affect. Course Course Emergency Course: 14:58 -CT head not concerning for intracranial hemorrhage or mass. CBC unremarkable. Chemistries demonstrate slightly elevated creatinine of 1.28 with a baseline of 1.4. ESR mildly elevated at 30 though CRP is negative. Considering the patient's history of rheumatoid arthritis, I do not suspect these are elevation in to be concerning for giant cell arteritis. On re-evaluation, the patient states her headache is improved. Will discharge. I discussed the findings and recommendations with the patient. Discussed return and emergency precautions including signs/symptoms of focal neuro deficit and intracranial hemorrhage. The patient voiced understanding and agreement with the plan. All questions answered to her satisfaction. Vital Signs Vital signs: Vital Signs Temperature 97.6 F 06/11/24 11:40 Pulse Rate 55 L 06/11/24 11:40 Respiratory Rate 18 06/11/24 11:40 Blood Pressure 158/68 H 06/11/24 11:40 Pulse Oximetry 100 06/11/24 11:40 Oxygen Delivery Room Air 06/11/24 11:40 Temperature 97.9 F 06/11/24 15:24 Pulse Rate 49 L 06/11/24 15:24 Respiratory Rate 15 06/11/24 15:24 Blood Pressure 144/59 H 06/11/24 15:24 Pulse Oximetry 99 06/11/24 15:24 Oxygen Delivery Room Air 06/11/24 11:40 Medical Decision Making MDM Narrative Medical decision making narrative: Plan: Labs, imaging, pain control, reassess Differential Diagnosis Differential Diagnosis: Intracranial hemorrhage, intracranial mass, headache, giant cell arteritis, other Vital Signs Vital Signs: Vital Signs Temperature 97.6 F 06/11/24 11:40 Pulse Rate 55 L 06/11/24 11:40 Respiratory Rate 18 06/11/24 11:40 Blood Pressure 158/68 H 06/11/24 11:40 Pulse Oximetry 100 06/11/24 11:40 Oxygen Delivery Room Air 06/11/24 11:40 Temperature 97.9 F 06/11/24 15:24 Pulse Rate 49 L 06/11/24 15:24 Respiratory Rate 15 06/11/24 15:24 Blood Pressure 144/59 H 06/11/24 15:24 Pulse Oximetry 99 06/11/24 15:24 Oxygen Delivery Room Air 06/11/24 11:40 Lab Data 06/11/24 13:42 06/11/24 13:42 Labs: Lab Results 01/18/25 Range/Units 13:42 WBC 4.2 L (4.5-10.0) K/mm3 RBC 4.12 L (4.2-5.4) M/mm3 Hgb 13.5 (12.0-15.0) g/dL Hct 40.4 (37.0-47.0) % MCV 98.1 (80-100) fl MCH 32.8 (26-34) pg MCHC 33.4 (32-36) g/dl RDW 14.9 H (11.5-14.5) % Plt Count 158 (150-375) k/mm3 MPV 9.8 (7.4-10.4) fl Immature Gran % (Auto) 0.2 (0-0.5) % Neut % (Auto) 38.6 L (45.5-73.1) % Lymph % (Auto) 40.6 (18.3-44.2) % Trigg % (Auto) 14.6 H (2.6-8.5) % Eos % (Auto) 5.0 H (0-4.4) % Baso % (Auto) 1.0 (0.2-1.2) % Lymph # (Auto) 1.70 (0.9-3.2) K/mm3 Trigg # (Auto) 0.6 (0.1-0.6) K/mm3 Eos # (Auto) 0.2 (0-0.3) K/mm3 Baso # (Auto) 0.0 (0.0-0.1) K/mm3 Abs Immat Gran (auto) 0.01 (0.00-0.031) K/mm3 Absolute Neuts (auto) 1.6 (1.3-6.7) K/mm3 Absolute Nucleated RBC 0.000 (0.0-0.012) K/mm3 Nucleated RBC % 0.0 (0.0-0.2) % ESR 30 H (0-20) mm/hr Sodium 141 (137-145) mmol/L Potassium 4.5 (3.4-5.0) mmol/L Chloride 106 (98-107) mmol/L Carbon Dioxide 29 (22-30) mmol/L Anion Gap 6 (4-12) mmol/L BUN 24 H (7-17) mg/dL Creatinine 1.28 H (0.7-1.0) mg/dL Estim Creat Clear Calc 36 ml/min Estimated GFR 40 L (59 - ) Glucose 99 (65-110) mg/dL Calcium 9.3 (8.4-10.2) mg/dL Total Bilirubin 0.5 (0.2-1.3) mg/dL AST 32 (14-36) U/L ALT 27 (6-35) U/L Alkaline Phosphatase 78 (38-126) U/L C-Reactive Protein 0.8 (<1.0) mg/dL Total Protein 8.0 (6.3-8.2) g/dL Albumin 4.3 (3.5-5.1) g/dL Discharge Plan Discharge Clinical Impression: Headache Qualifiers: Headache type: unspecified Headache chronicity pattern: acute headache Intractability: not intractable Qualified Code(s): R51.9 - Headache, unspecified Patient Disposition: Home, Self-Care Condition: Stable Instructions: Antibiotic Form, Acute Headache (ED) Additional Instructions: You were seen in the emergency department. Your exam is reassuring. A CT scan of the head was not concerning for bleeding in the brain. One lab for inflammation (ESR) was slightly elevated at 30 though a 2nd (CRP) was negative. Your red blood cell and white blood cell counts were normal. Your creatinine is 1.28 today. I recommend Tylenol/ibuprofen as needed for pain and follow-up with her primary care doctor. If you develop new or worsening headaches, weakness/numbness, change/loss of vision/hearing, or if you have other emergent concerns for life, limb, or eyesight, return to the emergency department. Patient Language: Solomon Islander Prescriptions: No Action mecobalamin (vitamin B12) 1,000 mcg tablet,disintegrating 1,000 mcg SUBLINGUAL DAILY Rx Instructions: place tablet under tongue and allow to dissolve for at least30 secs before swallowing Enbrel 50 mg/mL (1 mL) syringe 50 mg SUB-Q WEEKLY Caltrate 600 plus D 600 mg (1,500 mg)-800 unit tablet,chewable 1 tablet PO DAILY methotrexate sodium 2.5 mg tablet 15 mg PO WEEKLY Patient Comments: Takes 6 tablets weekly Fish oil capsule See Rx Instructions BYMOUTH BID Qty: 120 0RF Rx Instructions: Take (2) 1200 U capsules by oral route twice daily. biotin 1 mg capsule 1 mg PO DAILY loratadine [Allergy Relief (loratadine)] 10 mg tablet 10 mg PO DAILY folic acid 1 mg tablet 1 mg PO DAILY omeprazole 20 mg capsule,delayed release(DR/EC) 20 mg PO DAILY vitamin B complex Tablet 1 tablet PO DAILY terbinafine HCl 250 mg tablet 250 mg PO .7 days.month Patient Comments: Takes 1 week out of every month acetaminophen 500 mg capsule 500 mg PO DAILY triamcinolone acetonide [Nasacort] 55 mcg aerosol,spray 2 spray intranasal DAILY PRN Rx Instructions: administer into each nostril Probiotic (Align) BYMOUTH Prolia 60 mg/mL syringe 60 mg subcut [id number] Qty: 1 0RF albuterol sulfate 90 mcg/actuation HFA aerosol inhaler See Rx Instructions .ROUTE .COMPLEX Qty: 8.5 0RF Dose Instruction: INHALE 1 PUFF BY MOUTH EVERY 4 HOURS NEEDED FOR SHORTNESS OF BREATH OR WHEEZING Rx Instructions: INHALE 1 PUFF BY MOUTH EVERY 4 HOURS NEEDED FOR SHORTNESS OF BREATH OR WHEEZING montelukast 10 mg tablet See Rx Instructions .ROUTE .COMPLEX Qty: 90 1RF Dose Instruction: TAKE 1 TABLET BY MOUTH DAILY Rx Instructions: TAKE 1 TABLET BY MOUTH DAILY triamcinolone acetonide 0.1 % cream 1 applic topical BID Qty: 30 0RF nystatin 100,000 unit/gram powder 1 applic topical TID Qty: 30 0RF verapamil 240 mg tablet extended release See Rx Instructions .ROUTE .COMPLEX Qty: 135 2RF Dose Instruction: TAKE 1 AND 1/2 TABLETS BY MOUTH EVERY DAY WITH FOOD Rx Instructions: TAKE 1 AND 1/2 TABLETS BY MOUTH EVERY DAY WITH FOOD Farxiga 10 mg tablet See Rx Instructions .ROUTE .COMPLEX Qty: 90 0RF Dose Instruction: TAKE 1 TABLET BY MOUTH DAILY Rx Instructions: TAKE 1 TABLET BY MOUTH DAILY levothyroxine 137 mcg tablet See Rx Instructions .ROUTE .COMPLEX Qty: 90 0RF Dose Instruction: TAKE 1 TABLET BY MOUTH DAILY Rx Instructions: TAKE 1 TABLET BY MOUTH DAILY diclofenac sodium [Aleve (diclofenac)] 1 % gel 2 g topical TID Qty: 200 0RF Rx Instructions: apply to single elbow, wrist or hand; for hand includes palm/fingers/back of hand Please issue patient 2 x 100 gram tubes. Follow-up/Referrals: David Chowdary MD [Primary Care Provider] - 2 Weeks Time of Disposition: 15:00
[2024-06-11 15:24] VITALS: BP 144/59; PULSE 49; RESP 15; TEMP 36.6; O2SAT 99
== END 2024-06-11 15:20 | disposition home or self-care (01) ==
PROVIDERS: Emergency Provider Preventive Medicine Aerospace Medicine; PCP Internal Medicine
DX: R51.9 Headache, unspecified (principal); I12.9 Hypertensive chronic kidney disease with stage 1 through stage 4 chronic kidney disease, or unspecified chronic kidney disease; N18.9 Chronic kidney disease, unspecified; I25.10 Atherosclerotic heart disease of native coronary artery without angina pectoris; I25.84 Coronary atherosclerosis due to calcified coronary lesion; J45.909 Unspecified asthma, uncomplicated; E53.8 Deficiency of other specified B group vitamins; E03.9 Hypothyroidism, unspecified; G47.33 Obstructive sleep apnea (adult) (pediatric); G62.9 Polyneuropathy, unspecified; K21.9 Gastro-esophageal reflux disease without esophagitis; M06.9 Rheumatoid arthritis, unspecified; M81.0 Age-related osteoporosis without current pathological fracture; R32 Unspecified urinary incontinence; Z96.653 Presence of artificial knee joint, bilateral; Z86.16 Personal history of COVID-19; Z98.42 Cataract extraction status, left eye; Z98.41 Cataract extraction status, right eye; Z90.710 Acquired absence of both cervix and uterus
CPT/HCPCS: 36415; 70450; 80053; 85025; 85652; 86140; 96372; 99284; A9270

== ENCOUNTER 2025-04-06 08:28 | Emergency (ER) | payer MEDICARE, SELFPAY ==
[2025-04-06] VITALS (13 sets, daily range): BP systolic 104–141; BP diastolic 55–97; PULSE 50–58; RESP 12–18; TEMP 36.4; O2SAT 96–100
--- NOTE | ~2025-04-06 | CT_ITS ---
EXAM/PROCEDURE: CT abdomen pelvis w con HISTORY: left sided abdominal pain COMPARISON: 10/05/2019 TECHNIQUE: IV contrast enhanced CT of the abdomen and pelvis performed. FINDINGS: The bowel gas pattern is nonobstructive with no free air or free fluid or pneumatosis seen. No hydroureteronephrosis or obstructing ureteral stones seen. Moderate amount of stool extends to the cecum. No grossly inflamed appendix. Pancreas appears unchanged. The stomach is unopacified and nondistended but no gross acute process seen. No bulky retroperitoneal or mesenteric lymphadenopathy or masses seen. Diffuse degenerative changes throughout the bones with no acute or aggressive bony lesions seen. No gross interval change in lung bases compared to the previous study. Postsurgical changes including cholecystectomy, hysterectomy and partial colectomy again noted. IMPRESSION: No acute findings identified to explain source of patient's symptoms; several chronic appearing findings as above. Reviewed, dictated and finalized at location A. ICAL PUNCH OPERATOR IMPRESSION: No acute findings identified to explain source of patient's symptoms; several c hronic appearing findings as above.
--- OUTSIDE RECORDS SUMMARY | 2025-04-06 08:37 | XMS_ITS | Encounter Summary ---
Author Organization [facility] Address [address] [place] [id number] Care Team Providers Care Column Precaster Name Role Phone David Valencia MD Primary Care Provider [phone] Rhoda Dietrich MD Unavailable [phone] Encounter Details Date Type Department Care Team (Late st Contact Info) Description 10/24/[address] [facility] [place] [place] [id number] Ashley Martinez MD [address] [facility]. [place], [place] [id number] Social History Tobacco Use Types Packs/Day Years Used Date Smoking Tobacco: Never Smokeless Tobacco: Never Alcohol Use Standard Drinks/Week Comments Not Currently 0 (1 standard drink = 0.6 oz pur e alcohol) monthly Comments No Sex and Gender Information Value Date Recorded Sex Assigned at Not on file Legal Sex Female 1:25 PM CDT Gender Identity Not on file Sexual Orientation Not on file documented as of this encounter H&P Notes * Ashley Martinez MD - 10/24/2023 7:36 PM CDT Attending Provider: No att. providers found PCP: DAVID VALENCIA MD Saira Egan is an 78-year-old female. Reason for Admission: * No active hospital problems. * HPI: Mixed incontinence. Presents for bulking agent for intrinsic sphincter deficiency Past Medical History: Diagnosis Date Acid reflux Asthma (HHS/HCC) Diverticulitis Emphysema, unspecified ([facility] HHS/HCC) Hypothyroidism, unspecified Kidney disease takes Farxiga MALCOLM on CPAP PONV (postoperative nausea and vomiting) SVT (supraventricular tachycardia) ([facility]) Wears partial dentures upper Allergies: Allergies Allergen Reactions Cefprozil Rash Ciprofloxacin Rash Diphenoxylate-Atropine Rash Doxycycline Other (see comment) and Rash Other Sulfamethoxazole-Trimethoprim Rash GI intolerance, GI intolerance Fosamax [Alendronate] Cough Pseudoephedrine Other (see comment) other Aspirin Rash Chlorhexidine Gluconate Rash After knee replacement Metronidazole Nausea and Vomiting and Other (see comment) GI intolerance, GI intolerance GI Issues Molds & Smuts Runny Nose Sneezing, stuffy nose, Sneezing, stuffy nose Turmeric Other (see comment) Asthmatic cough Social History Tobacco Use Smoking status: Never Smokeless tobacco: Never Substance Use Topics Alcohol use: Not Currently Comment: monthly Past Surgical History: Procedure Laterality Date BALLON SINUPLASTY BRONCHOSCOPY CARPAL TUNNEL RELEASE Right COLON SURGERY colon resection (18 in of sigmoid) EXCISION INTERDIGITAL NEUROMA EACH Right foot EYE SURGERY Bilateral cataract with lense in right eye HYSTERECTOMY LAPAROSCOPIC CHOLECYSTECTOMY 1994 REMOVAL OF FALLOPIAN TUBE SCREENING COLONOSCOPY TONSILLECTOMY age 19 TOTAL KNEE ARTHROPLASTY Bilateral No family history on file. Travel Exposure: Current Outpatient Medications on File Prior to Visit Medication Sig albuterol sulfate HFA 108 (90 Base) MCG/ACT inhaler Inhale 1 puff into the lungs every 4 (four) hours as needed for Wheezing. B Complex Cap capsule Take 1 capsule by mouth daily. Biotin 1000 MCG Tab Take 1,000 mg by mouth daily. bisacodyl EC (DULCOLAX) 5 MG Tab EC tablet Take 3 tablets (15 mg total) by mouth daily as needed. Calcium Carbonate-Vitamin D (OYSTER SHELL/VITAMIN D) 600-125 MG-UNIT Tab Take 1 tablet by mouth daily. Calcium Magnesium Zinc 333-133-5 MG Tab Take 1 tablet by mouth daily. Cyanocobalamin (B-12) 50 MCG Tab Take 500 mcg by mouth daily. dapagliflozin (FARXIGA) 10 MG tablet Take 1 tablet (10 mg total) by mouth daily. denosumab (PROLIA) 60 MG/ML injection Inject 1 mL (60 mg total) into the skin once. Every 6 months esomeprazole (NEXIUM) 40 MG capsule Take 1 capsule (40 mg total) by mouth daily. etanercept (ENBREL SURECLICK) 50 MG/ML Solution Auto-injector injection Inject 1 mL (50 mg total) into the skin once a week. Takes on thursday folic acid (FOLVITE) 1 MG tablet Take 1 tablet (1 mg total) by mouth daily. levothyroxine (SYNTHROID) 137 MCG tablet Take 1 tablet (137 mcg total) by mouth every morning. loratadine (CLARITIN) 10 MG tablet Take 1 tablet (10 mg total) by mouth daily. [place] 3-6-9 Fatty Acids (OMEGA 3-6-9 COMPLEX) Cap Take 2 tablets by mouth 2 (two) times a day. triamcinolone acetonide (NASACORT) 55 MCG/ACT nasal inhaler 2 sprays by Each Nostril route daily. verapamil (CALAN SR) 240 MG ER tablet Take 1 tablet (240 mg total) by mouth nightly. No current facility-administered medications on file prior to visit. There were no vitals taken for this visit. ROS negative Physical Exam Fixed urethra on exam Assessment: Intrinsic sphincter deficiency Plan: Cystoscopy bulking agent. Understands risks of bleeding, infection, lack of efficacy, need for repeat procedures, urinary retention. Agrees to proceed ASHLEY MARTINEZ MD 10/24/2023 documented in this encounter Plan of Treatment Not on file documented as of this encounter Visit Diagnoses Not on filedocumented in this encounter Care Teams Column Precaster Relationship Specialty Start Date End Date David Valencia MD [address] [facility] [address] [place] [id number] PCP - General INTERNAL MEDICINE 03/16/20 Rhoda Dietrich MD [address] [facility] [address] [place] [address] PULMONARY DISEASE 10/20/23 documented as of this encounter
--- OUTSIDE RECORDS SUMMARY | 2025-04-06 08:37 | XMS_ITS | Encounter Summary ---
Author Organization [facility] Address [address] [place] [address] Care Team Providers Care Compensation Expert Name Role Phone David Chowdary MD Primary Care Provider [phone] Mishel Soto MD Unavailable + Encounter Details Date Type Department Care Team (Late st Contact Info) Description 03/31/2024 [place] Only [facility] [place] [address] [place] [id number] Scanning, Provider Social History Tobacco Use Types Packs/Day Years Used Date Smoking Tobacco: Never Smokeless Tobacco: Never Alcohol Use Standard Drinks/Week Comments No 0 (1 standard drink = 0.6 oz pur e alcohol) AUDIT-C Answer Date Recorded Q1: How often do you have a drink containing alc ohol? 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 WIRER Gender Identity Female 08/18/2018 7:08 AM CDT Sexual Orientation Straight 08/18/2018 7: 08 AM CDT documented as of this encounter Plan of Treatment Not on file documented as of this encounter Procedures Procedure Name Priority Date/Time Associated Diagnosis Comments SCAN - LABS 03/31/2024 documented in this encounter Results * SCAN - LABS (03/31/2024) us Provider Scanning Final Result documented in this encounter Visit Diagnoses Not on filedocumented in this encounter Care Teams Compensation Expert Relationship Specialty Start Date End Date David Chowdary MD PCP - General Internal Medicine 12/03/17 Mishel Soto MD [address] [facility] [address] [place] [address] Consulting Physician Rheumatology 10/24/24 documented as of this encounter
--- OUTSIDE RECORDS SUMMARY | 2025-04-06 08:38 | XMS_ITS | Clinical Summary ---
Author Organization [facility] Address [facility] [place] [address] Care Team Providers Care Barrel Rifler Broach Name Role Phone David Chowdary MD Primary Care Provider [phone] Rhoda Dietrich MD Unavailable [phone] Allergies Active Allergy Reactions Criticality Noted Date Comments Aspirin Rash Low 10/20/2023 Cefprozil Rash Medium 04/07/2012 Chlorhexidine Gluconate Rash Low 10/20/2023 After knee replacement Ciprofloxacin Rash Medium 04/07/2012 Diphenoxylate-Atropine Rash Medium 04/07/2012 Doxycycline Other (see comment),Rash Medium 11/12/2017 Other Alendronate Cough 10/20/2023 Metronidazole Nausea and Vomiting,Other (see comment) Low 04/07/2012 GI intolerance, GI intolerance GI Issues Molds & Smuts Runny Nose Low 04/07/2012 Sneezing, stuffy nose, Sneezing, stuffy nose Pseudoephedrine Other (see comment) 11/12/2017 other Sulfamethoxazole-Trimeth oprim Rash Medium 04/07/2012 GI intolerance, GI intolerance Turmeric Other (see comment) Low 08/20/2018 Asthmatic cough Medications Calcium Magnesium Zinc 333-133-5 MG Tab Take 1 tablet by mouth daily. Active albuterol sulfate HFA 108 (90 Base) MCG/ACT inhaler Inhale 1 puff into the lungs every 4 (four) hours as needed for Wheezing. Active Cyanocobalamin (B-12) 50 MCG Tab Take 500 mcg by mouth daily. Active Calcium Carbonate-Vitam in D (OYSTER SHELL/VITAMIN D) 600-125 MG-UNIT Tab Take 1 tablet by mouth daily. Active [place] 3-6-9 Fatty Acids (OMEGA 3-6-9 COMPLEX) Cap Take 2 tablets by mouth 2 (two) times a day. Active loratadine (CLARITIN) 10 MG tablet Take 1 tablet (10 mg total) by mouth daily. Active triamcinolone acetonide (NASACORT) 55 MCG/ACT nasal inhaler 2 sprays by Each Nostril route daily. Active etanercept (ENBREL SURECLICK) 50 MG/ML Solution Auto-injector injection Inject 1 mL (50 mg total) into the skin once a week. Takes on thursday12/22/2019 Active folic acid (FOLVITE) 1 MG tablet Take 1 tablet (1 mg total) by mouth daily. 06/30/2019 Active levothyroxine (SYNTHROID) 137 MCG tablet Take 1 tablet (137 mcg total) by mouth every morning. Active esomeprazole (NEXIUM) 40 MG capsule Take 1 capsule (40 mg total) by mouth daily. 10/03/2019 Active denosumab (PROLIA) 60 MG/ML injection Inject 1 mL (60 mg total) into the skin once. Every 6 months 01/23/2020 Active bisacodyl EC (DULCOLAX) 5 MG Tab EC tablet Take 3 tablets (15 mg total) by mouth daily as needed. Active Biotin 1000 MCG Tab Take 1,000 mg by mouth daily. Active verapamil (CALAN SR) 240 MG ER tablet Take 1 tablet (240 mg total) by mouth nightly. Active dapagliflozin (FARXIGA) 10 MG tablet Take 1 tablet (10 mg total) by mouth daily. Active B Complex Cap capsule Take 1 capsule by mouth daily. Active montelukast (SINGULAIR) 10 MG tablet Take 1 tablet (10 mg total) by mouth daily. Active Social History Tobacco Use Types Packs/Day Years Used Date Smoking Tobacco: Never Smokeless Tobacco: Never Tobacco Cessation:Counseling Given: Not Answered Alcohol Use Standard Drinks/Week Comments Not Currently 0 (1 standard drink = 0.6 oz pur e alcohol) monthly Comments No Sex and Gender Information Value Date Recorded Sex Assigned at Not on file Legal Sex Female 1:25 PM CDT Gender Identity Not on file Sexual Orientation Not on file Last Filed Vital Signs Vital Sign Reading Time Taken Comments Blood Pressure 153/75 10/29/2023 10:40 AM CDT Pulse 65 10/29/2023 10:40 AM CDT Temperature 36.6 C (97.8 F) 10/29/2023 10:40 AM CDT Respiratory Rate 16 10/29/2023 10:40 AM CDT Oxygen Saturation 99% 10/29/2023 10:40 AM CDT Inhaled Oxygen Concentration - - Weight 84.9 kg (187 lb 2.7 oz) 10/29/2023 7:00 A M CDT Height 167.6 cm (5' 6) 10/29/2023 7:00 AM CDT Body Mass Index 30.21 10/29/2023 7:00 AM CDT Plan of Treatment Health Maintenance Due Date Last Done Comments Hepatitis C 1963 Annual Medicare Wellness Visit 01/29/2012 Dexa Scan (General) 01/29/2012 Zoster Vaccines (2 of 3) 12/22/2012 10/27/2012 RSV Immunization or 60+ Years (1 - 1-dose 75+ series) 2022 DTaP, Tdap and Td Vaccines (3 - Tdap) 07/07/2023 07/07/2013, 06/25/2013 COVID-19 Vaccine ( season) 2025 02/07/2022, 07/26/2021, 01/18/2021, Additional history exists Influenza Adult (#1) 2025 03/14/2019, 03/06/2018, 03/05/2017, Additional history exists Pneumococcal Vaccine: 50+ Years Completed 02/23/2018, 06/25/2013 Hepatitis A Vaccines Aged Out No long er eligible based on patient's age to complete this topic Meningococcal B Vaccine Aged Out No l onger eligible based on patient's age to complete this topic Meningococcal Vaccine Aged Out No lenny cliff eligible based on patient's age to complete this topic RSV Immunizations Under 20 Months Aged Out No longer eligible based on patient's age to complete this topic Medical Devices Implanted Type Area [employer] In[employer] Adjunct Device Identifier Shelf Expiration Date Model / Serial / Lot Bulkamid Urethra Bulking Agent - [id number] Implanted:Qty: 2 on 10/29/2023 by Brain Oscar MD at [facility] N/A: Urethra [employer] 04/23/2026 [id number] / / [id number] Insurance MEDICARE [facility] Care Teams Barrel Rifler Broach Relationship Specialty Start Date End Date David Chowdary MD [address] [place] [id number] PCP - General INTERNAL MEDICINE 03/16/20 Rhoda Dietrich MD [address], [address] [place], [place] [id number] PULMONARY DISEASE 10/20/23
--- OUTSIDE RECORDS SUMMARY | 2025-04-06 08:38 | XMS_ITS | Clinical Summary ---
Author Organization [facility] Address [address] [place] [address] Phone Care Team Providers Care Shuttler Name Role Phone David Chowdary MD Primary Care Provider [phone] Mishel Soto MD Unavailable + Allergies Active Allergy Reactions Criticality Noted Date Comments Alendronic Acid Other (See comments) Low 11/12/2017 Asthma Exacerbation Cefprozil Rash Medium Ciprofloxacin Rash Medium Diphenhydramine Rash Medium Doxycycline Rash Medium Metronidazole Other (See comments) Low GI Issues Sulfamethoxazole-Trimeth oprim Rash Medium Turmeric Other (See comments) Low 08/20/2018 Asthmatic cough Medications albuterol HFA (PROVENTIL HFA,VENTOLIN HFA,PROAIR HFA) 90 mcg/actuation inhaler Inhale 1 puff Active ascorbic acid, vitamin C, (VITAMIN C) 1,000 mg CR tablet 1 tablet (1,000 mg total) Active cyanocobalamin (Vitamin B-12) 100 mcg tabletIndicatio ns:Prevention of Vitamin B12 Deficiency Take 5 tablets (500 mcg total) by mouth Active cetirizine 10 mg capsule 1 capsule daily. Active levothyroxine (SYNTHROID, LEVOTHROID) 137 mcg tablet 1 tablet (137 mcg total) Active montelukast (SINGULAIR) 10 mg tablet 0 8 Active verapamil SR (CALAN SR) 240 mg CR tablet 0 8 Active acetaminophen (TYLENOL) 500 mg tablet Take 1 tablet (500 mg total) by mouth every 6 (six) hours as needed for pain Active docosahexaenoic acid-epa 120-180 mg capsule Take 1,000 mg by mouth Active terbinafine (LamiSIL) 250 mg tablet Take 1 tablet (250 mg total) by mouth every 21 days Takes meds for one week each month for chronic toe fungus Active dapagliflozin (FARXIGA) 10 mg tablet 2 Active vitamin B complex capsule Take 1 capsule by mouth daily Active omeprazole (PriLOSEC) 20 mg capsule TAKE 1 CAPSULE BY MOUTH DAILY 30 MINUTES BEFORE BREAKFAST 4 Active folic acid (FOLVITE) 1 mg tablet Take 1 tablet (1 mg total) by mouth daily 90 tablet 4 4 Active biotin 5,000 mcg tablet,chewable Take by mouth Active etanercept (EnbreL SureClick) 50 mg/mL (1 mL) pen injectorIndicat ions:Seropositi ve rheumatoid arthritis of multiple sites (HCC) Inject 1 mL (50 mg total) under the skin once a week 12 mL 1 5 Active methotrexate 2.5 mg tablet TAKE 6 TABLETS(15 MG) BY MOUTH EVERY 7 DAYS 72 tablet 5 Active denosumab (PROLIA) 60 mg/mL syringe Inject 1 mL (60 mg total) under the skin once 1 mL 5 Active Active Problems Problem Noted Date Diagnosed Date BMI 31.0-31.9,adult 08/20/2018 Primary osteoarthritis 08/20/2018 Age-related osteoporosis wit hout current pathological fracture 08/20/2018 Bronchiectasis without acute exacerbation 2018 Assessment & Plan (07/07/2018 8:23 AM DENTAL LABORATORY TECHNICIAN APPRENTICE): FOB for eval; exlcude opportunistic infection Assessment & Plan (06/30/2018 2:55 PM DENTAL LABORATORY TECHNICIAN APPRENTICE): Seen on CT Minimal sputum production on a daily basis Consider FOB to exclude atypical organisms especially in the setting of immunosuppression. Lung nodules 06/30/2018 Assessment & Plan (06/30/2018 2:57 PM DENTAL LABORATORY TECHNICIAN APPRENTICE): The usual differential for pulmonary nodule includes primary lung cancer (adenocarcinoma, squamous cell carcinoma, and small cell carcinoma), carcinoid tumor, and metastasis from another source (breast, kidney, the thyroid, bladder, colon, kidney, and melanoma. Benign causes include hemangioma, lipoma, and leiomyoma. Infectious causes such as TB, fungal disease, and round pneumonia must be considered. Plan f/u Ct in one year. Rheumatoid arthritis involvi ng multiple sites with positive rheumatoid factor 06/30/2018 Assessment & Plan (06/30/2018 3:02 PM DENTAL LABORATORY TECHNICIAN APPRENTICE): Immunosuppressives per Dr. Soto Diverticulitis of colon 03/05/2012 Encounters Date Type Department Care Team Description 04/03/2025 10:00 AM DENTAL LABORATORY TECHNICIAN APPRENTICE Office Visit [facility] [address], [place] [address] Silvio Davdi MD Age-related osteoporosis without current pathological fracture (Primary Dx); Vitamin D deficiency 03/08/2025 Documentation [facility] Rheumatology at [address] [address] Mishel Soto MD Prolia Injection order [facility] 03/08/2025 Orders Only [facility] [address] [place] [id number] Mishel Soto MD Age-related osteoporosis without current pathological fracture (Primary Dx) 03/08/2025 Orders Only [facility] Rheumatology at [address] [place] [phone] Mishel Soto MD Age-related osteoporosis without current pathological fracture (Primary Dx) 02/20/2025 Orders Only [facility] [id number] David Chowdary MD 01/05/2025 Orders Only [facility] Rheumatology at [address], [place] [address] Mishel Soto MD Seropositive rheumatoid arthritis of multiple sites (HCC) (Primary Dx); Encounter for medication monitoring; Encounter for long-term (current) use of medications from Last 3 Months Immunizations Immunization Administration Dates Next Due COVID-19 MRNA (MODERNA) .5 M L (50 MCG) VACCINE (12 YEARS AND UP) 02/19/2023 COVID-19 mRNA (PFIZER) 0.3 m L (30 mcg) vaccine (12 years and up) 06/09/2024,12/07/2023 DTaP 06/25/2013 Influenza, Quad, Adjuvantate d, Intramuscular 03/02/2020 Influenza, Quadrivalent, Hig h Dose, Preservative Free, Intrr 03/10/2022 Influenza, Trivalent, Adjuva nted, Intramuscular 03/05/2017 Influenza, Trivalent, High D ose, Split, Preservative Free, Intramuscular 03/14/2019,03/06/2018,02/25/2016,03/13 Influenza, Trivalent, IM (MDV) 02/24/2014 Influenza, Unspecified 03/06/2018,02/02/2012 Moderna SARS-CoV-2 Monovalen t Vaccination (12+ YRS) 07/26/2021,08/13/2020,07/12/2020 Moderna Sars-cov-2 Bivalent Vaccine 50 Mcg/0.5 mL (12+ YRS)-Blue/Rocha 02/07/2022 Moderna Sars-cov-2 Monovalen t Booster Vaccination (12+ YRS) 07/26/2021 Moderna Sars-cov-2 Monovalen t Booster Vaccination .25 Ml dose (12+ YRS) 01/18/2021 Pneumococcal Conjugate PCV 13 06/25/2013 Pneumococcal Polysaccharide PPV23 02/24/2018,06/2017 Tetanus toxoid, adsorbed 07/07/2013 ZOSTER LIVE 10/27/2012 Surgical History Surgery Date Site/Laterality Comments KNEE ARTHROPLASTY 2010,2015 Bilateral CARPAL TUNNEL RELEASE 05/25/2015 - 05/24/2016 Right CHOLECYSTECTOMY 05/25/1994 - 05/24/1995 HYSTERECTOMY 05/25/1997 - 05/24/1998 Bilateral OTHER SURGICAL HISTORY right foot neuroma removal REFRACTIVE SURGERY Right OTHER SURGICAL HISTORY Balloon sinusplasty COLECTOMY CATARACT EXTRACTION 12/24/2019 - 01/23/2020 Right Medical History Medical History Date Comments Asthma Arthritis 1979 SVT (supraventricular tachycardia) 1993 Sinusitis chronic Rheumatoid arthritis (HCC) Hypothyroidism Diverticulitis large intestine 09/2019 Cataract both eyes 0 & 01/31/20 CPAP (continuous positive ai rway pressure) dependence 2020 at rest/sleep Family History Medical History Relation Name Comments Heart disease Brother Alzheimer's disease Father Stroke Father Stroke Maternal Grandmother Heart disease Mother Leukemia Paternal Grandmother Relation Name Status Comments Brother Alive Father Maternal Grandmother Mother Paternal Grandmother Social History Tobacco Use Types Packs/Day Years Used Date Smoking Tobacco: Never Smokeless Tobacco: Never Tobacco Cessation:Counseling Given: Not Answered Alcohol Use Standard Drinks/Week Comments No 0 [...] AM CDT Legal Sex Female 3:33 AM DENTAL LABORATORY TECHNICIAN APPRENTICE Gender Identity Female 08/18/2018 7:08 AM CDT Sexual Orientation Straight 08/18/2018 7: 08 AM CDT Last Filed Vital Signs Vital Sign Reading Time Taken Comments Blood Pressure 122/60 04/03/2025 10:00 AM DENTAL LABORATORY TECHNICIAN APPRENTICE Pulse 74 04/03/2025 10:00 AM DENTAL LABORATORY TECHNICIAN APPRENTICE Temperature 36.8 C (98.3 F) 02/05/2023 11:06 AM CDT Respiratory Rate 14 04/03/2025 10:0 0 AM DENTAL LABORATORY TECHNICIAN APPRENTICE Oxygen Saturation 98% 04/14/2024 10: 42 AM DENTAL LABORATORY TECHNICIAN APPRENTICE Inhaled Oxygen Concentration - - Weight 76.6 kg (168 lb 12.8 oz) 025 10:00 AM DENTAL LABORATORY TECHNICIAN APPRENTICE Height 170.2 cm (5' 7) 04/03/2025 10:0 0 AM DENTAL LABORATORY TECHNICIAN APPRENTICE Body Mass Index 26.44 04/03/2025 10:00 AM DENTAL LABORATORY TECHNICIAN APPRENTICE Plan of Treatment Health Maintenance Due Date Last Done Comments Depression Screening 1945 Hepatitis C Screening 1945 Osteoporosis Screening-Bone Density Scan 1945 Hepatitis B Screening 1965 Well Visit 65+ 01/29/2012 Fall Risk Assessment 02/04/2019 02/04/2018 Covid-19 Vaccine (2024-2 6 season) 2025 06/09/2024, 12/07/2023, 02/19/2023, Additional history exists Influenza Vaccine (#1) 2025 , 03/11/2023, 03/14/2022, Additional history exists DTaP/Tdap/Td Vaccine (4 - Td or Tdap) 07/26/2034 07/26/2024, 07/07/2013, 06/25/2013 Pneumococcal vaccine 65+ Completed 018, 02/23/2018, 04/27/2017, Additional history exists Zoster Vaccine Completed 11/13/2022, 08/23, 07/07/2013, Additional history exists Procedures Procedure Name Priority Date/Time Associated Diagnosis Comments COMPREHENSIVE METABOLIC PANEL Routine 04/04/2025 7:52 AM DENTAL LABORATORY TECHNICIAN APPRENTICE Seropositive rheumatoid arthritis of multiple sites ([facility]) Encounter for medication monitoring Encounter for long-term (current) use of medications CBC WITH AUTO DIFFERENTIAL Routine 04/04/2025 7:52 AM DENTAL LABORATORY TECHNICIAN APPRENTICE Seropositive rheumatoid arthritis of multiple sites ([facility]) Encounter for medication monitoring Encounter for long-term (current) use of medications URINE CULTURE Routine 04/04/2025 7:52 AM DENTAL LABORATORY TECHNICIAN APPRENTICE REFLEXIVE URINE CULTURE Routine 04/04/2025 7:52 AM DENTAL LABORATORY TECHNICIAN APPRENTICE URINALYSIS AND REFLEX TO MICROSCOPIC AND CULTURE Routine 04/04/2025 7:52 AM DENTAL LABORATORY TECHNICIAN APPRENTICE Seropositive rheumatoid arthritis of multiple sites ([facility]) Encounter for medication monitoring Encounter for long-term (current) use of medications HEMOGLOBIN A1C Routine 02/20/2025 7:48 AM CDT VITAMIN D 25 HYDROXY Routine 02/20/2025 7:48 AM CDT TSH Routine 02/20/2025 7:48 AM CDT T4, FREE Routine 02/20/2025 7:48 AM CDT BASIC METABOLIC PANEL Routine 02/20/2025 7:48 AM CDT LIPID PANEL Routine 02/20/2025 7:48 AM CDT COMPREHENSIVE METABOLIC PANEL Routine 01/05/2025 10:42 AM CDT Seropositive rheumatoid arthritis of multiple sites (HCC) Encounter for medication monitoring Encounter for long-term (current) use of medications CBC WITH AUTO DIFFERENTIAL Routine 01/05/2025 10:41 AM CDT Seropositive rheumatoid arthritis of multiple sites (HCC) Encounter for medication monitoring Encounter for long-term (current) use of medications REFLEXIVE URINE CULTURE Routine 01/05/2025 10:37 AM CDT URINALYSIS AND REFLEX TO MICROSCOPIC AND CULTURE Routine 01/05/2025 10:37 AM CDT Seropositive rheumatoid arthritis of multiple sites (HCC) Encounter for medication monitoring Encounter for long-term (current) use of medications from Last 3 Months Results * REFLEXIVE URINE CULTURE (04/04/2025 7:52 AM DENTAL LABORATORY TECHNICIAN APPRENTICE) Urine culture [facility] Comment:CULTURE INDICATED - RESULTS TO FOLLOW 04/04/2025 7:52 AM DENTAL LABORATORY TECHNICIAN APPRENTICE 04/04/2025 7:53 AM DENTAL LABORATORY TECHNICIAN APPRENTICE Narrative [facility] - 04/05/2025 6:05 PM DENTAL LABORATORY TECHNICIAN APPRENTICE FASTING:YES FASTING: YES us Mishel Soto MD LAB MICROBIOLOGY - GENERAL ORDERABLES Final Result [facility] [address] [place] [address] * (ABNORMAL) Urinalysis reflex to microscopic and culture Urine, clean voided (04/04/2025 7:52 AM DENTAL LABORATORY TECHNICIAN APPRENTICE) Color, ur YELLOW YELLOW [facility] Appearance, ur CLEAR CLEAR [facility] Specific gravity 1.012 1.001 - 1.035 [facility] pH, ur 5.5 5.0 - 8.0 [facility] Glucose, ur 2+(A) NEGATIVE [facility] Bilirubin, ur NEGATIVE NEGATIVE [facility] Ketones, ur NEGATIVE NEGATIVE [facility] Blood, ur NEGATIVE NEGATIVE [facility] Protein, ur, quant NEGATIVE NEGATIVE [facility] Nitrites, ur NEGATIVE NEGATIVE [facility] Leukocyte esterase, ur TRACE(A) NEGATIVE [facility] WBC, ur 0-5 < OR = 5 /HPF [facility] RBC, ur NONE SEEN < OR = 2 /HPF [facility] Epithelial cells, squamous, ur NONE SEEN < OR = 5 /HPF [facility] Bacteria, ur, quant NONE SEEN NONE SEEN /HPF [facility] Hyaline cast NONE SEEN NONE SEEN /LPF [facility] Note [facility] Comment: This urine was analyzed for the presence of WBC, RBC, bacteria, casts, and other formed elements. Only those elements seen were reported. Urine, clean voided 04/04/2025 7:52 AM DENTAL LABORATORY TECHNICIAN APPRENTICE 04/04/2025 7:53 AM DENTAL LABORATORY TECHNICIAN APPRENTICE Narrative [facility] - 04/05/2025 6:05 PM DENTAL LABORATORY TECHNICIAN APPRENTICE FASTING:YES FASTING: YES Mishel Soto MD LAB MICROBIOLOGY - GENERAL ORDERABLES Final Result [facility] [address] [place] [address] * CBC with auto differential (04/04/2025 7:52 AM DENTAL LABORATORY TECHNICIAN APPRENTICE) WBC 6.1 3.8 - 10.8 Thousand/u L [facility] RBC, POC 4.51 3.80 - 5.10 Million/uL [facility] Hgb 14.4 11.7 - 15.5 g/dL [facility] Hct 44.9 35.0 - 45.0 % [facility] MCV 99.6 80.0 - 100.0 fL [facility] MCH 31.9 27.0 - 33.0 pg [facility] MCHC 32.1 32.0 - 36.0 g/dL [facility] Comment: For adults, a slight decrease in the calculated MCHC value (in the range of 30 to 32 g/dL) is most likely not clinically significant; however, it should be interpreted with caution in correlation with other red cell parameters and the patient's clinical condition. Rdw 13.3 11.0 - 15.0 % [facility] Platelets 232 140 - 400 Thousand/u L [facility] MPV 10.3 7.5 - 12.5 fL [facility] Neutrophils, abs 2,745 1,500 - 7,800 cells/uL [facility] Lymphocytes, abs 2,495 850 - 3,900 cells/uL [facility] Monocyte abs 543 200 - 950 cells/uL [facility] Eosinophils, abs 268 15 - 500 cells/uL [facility] Basophils, abs 49 0 - 200 cells/uL [facility] Neutrophils 45 % [facility] Lymphocyte pct 40.9 % [facility] Monocytes 8.9 % [facility] Eosinophils 4.4 % [facility] Basophils 0.8 % [facility] Blood 04/04/2025 7:52 AM DENTAL LABORATORY TECHNICIAN APPRENTICE 04/04/2025 7:53 AM DENTAL LABORATORY TECHNICIAN APPRENTICE Narrative [facility] - 04/04/2025 7:59 PM DENTAL LABORATORY TECHNICIAN APPRENTICE FASTING:YES FASTING: YES Mishel Soto MD LAB BLOOD ORDERABL ES Final Result [facility] [address] [place] [address] * Urine culture (04/04/2025 7:52 AM DENTAL LABORATORY TECHNICIAN APPRENTICE) Urine culture [facility] Comment: CULTURE, URINE, ROUTINE Micro Number: [id number] Test Status: Final Specimen Source: Urine Specimen Quality: Adequate Result: No Growth 04/04/2025 7:52 AM DENTAL LABORATORY TECHNICIAN APPRENTICE 04/04/2025 7:53 AM DENTAL LABORATORY TECHNICIAN APPRENTICE Narrative [facility] - 04/05/2025 6:05 PM DENTAL LABORATORY TECHNICIAN APPRENTICE FASTING:YES FASTING: YES us Mishel Soto MD LAB MICROBIOLOGY - GENERAL ORDERABLES Final Result [facility] [address] [place] [address] * (ABNORMAL) Comprehensive metabolic panel (04/04/2025 7:52 AM DENTAL LABORATORY TECHNICIAN APPRENTICE) Glucose 95 65 - 99 mg/dL [facility] Comment: Fasting reference interval BUN 28(H) 7 - 25 mg/dL [facility] Creatinine 1.31(H) 0.60 - 1.00 mg/dL [facility] eGFR 42(L) > OR = 60 mL/min/1.7 3m2 [facility] BUN/creat ratio 21 6 - 22 (calc) [facility] Sodium 139 135 - 146 mmol/L [facility] Potassium, pl 4.0 3.5 - 5.3 mmol/L [facility] Chloride 100 98 - 110 mmol/L [facility] CO2 34(H) 20 - 32 mmol/L [facility] Calcium 10.0 8.6 - 10.4 mg/dL [facility] Protein, sr 7.6 6.1 - 8.1 g/dL [facility] Albumin 4.5 3.6 - 5.1 g/dL [facility] GLOBULIN 3.1 1.9 - 3.7 g/dL (calc) [facility] Alb/glob ratio 1.5 1.0 - 2.5 (calc) [facility] Bilirubin, total 0.7 0.2 - 1.2 mg/dL [facility] Alk phos 80 37 - 153 U/L [facility] AST 20 10 - 35 U/L [facility] ALT (SGPT) 17 6 - 29 U/L [facility] Blood 04/04/2025 7:52 AM DENTAL LABORATORY TECHNICIAN APPRENTICE 04/04/2025 7:53 AM DENTAL LABORATORY TECHNICIAN APPRENTICE Narrative [facility] - 04/04/2025 5:11 PM DENTAL LABORATORY TECHNICIAN APPRENTICE FASTING:YES FASTING: YES Mishel Soto MD LAB BLOOD ORDERABL ES Final Result [facility] [address] [place] [address] * Vitamin D 25 hydroxy (02/20/2025 7:48 AM CDT) Vitamin D 25-OH 77 30 - 100 ng/mL [facility] Comment: Vitamin D Status 25-OH Vitamin D: Deficiency: <20 ng/mL Insufficiency: 20 - 29 ng/mL Optimal: > or = 30 ng/mL For 25-OH Vitamin D testing on patients on D2-supplementation and patients for whom quantitation of D2 and D3 fractions is required, the QuestAssureD(TM) 25-OH VIT D, (D2,D3), LC/MS/MS is recommended: order code 98317 (patients >2yrs). Comment [facility] Comment: See Note 1 Note 1 For additional information, please refer to http://education.TermScout/faq/KFK123 (This link is being provided for informational/ educational purposes only.) 02/20/2025 7:48 AM CDT 02/20/2025 7:50 AM CDT Narrative [facility] - 02/21/2025 3:00 AM CDT FASTING:YES Patient Report History copied from and originally reported to client [id number] in site ([facility]) us David Chowdary MD LAB BLOOD ORDERABLES Final Re sult [facility] [address] [facility] [address] * (ABNORMAL) TSH (02/20/2025 7:48 AM CDT) TSH 0.11(L) 0.40 - 4.50 mIU/L [facility] 02/20/2025 7:48 AM CDT 02/20/2025 7:50 AM CDT Narrative [facility] - 02/21/2025 3:00 AM CDT FASTING:YES Patient Report History copied from and originally reported to client [id number] in site ([facility]) David Chowdary MD LAB BLOOD ORDERABLES Final Re sult Performing Organization Address [facility] de Phone Number [facility] [address] [place] [address] * T4, free (02/20/2025 7:48 AM CDT) Pathologist [facility] Free T4 1.7 0.8 - 1.8 ng/dL [facility] 02/20/2025 7:48 AM CDT 02/20/2025 7:50 AM CDT Narrative [email or web address] - 02/21/2025 3:00 AM CDT FASTING:YES Patient Report History copied from and originally reported to client [id number] in site ([facility]) David Chowdary MD LAB BLOOD ORDERABLES Final Re sult Performing Organization Address [facility] de Phone Number [facility] [address] [place] [address] * Hemoglobin A1c (02/20/2025 7:48 AM CDT) [facility] Hgb A1C 5.4 <5.7 % of total Hgb [facility] Comment: For the purpose of screening for the presence of diabetes: <5.7% Consistent with the absence of diabetes 5.7-6.4% Consistent with increased risk for diabetes (prediabetes) > or =6.5% Consistent with diabetes This assay result is consistent with a decreased risk of diabetes. Currently, no consensus exists regarding use of hemoglobin A1c for diagnosis of diabetes in children. According to [place] [employer] Association (ADA) guidelines, hemoglobin A1c <7.0% represents optimal control in non- diabetic patients. Different metrics may apply to specific patient populations. Standards of Medical Care in Diabetes(ADA). 02/20/2025 7:48 AM CDT 02/20/2025 7:50 AM CDT Narrative [facility] - 02/21/2025 3:00 AM CDT FASTING:YES Patient Report History copied from and originally reported to client [id number] in site ([facility]) David Chowdary MD LAB BLOOD ORDERABLES Final Re sult Performing Organization Address [facility] Co de Phone Number [facility] [address] [place] [address] * (ABNORMAL) Lipid panel (02/20/2025 7:48 AM CDT) [facility] Cholesterol 196 <200 mg/dL [facility] HDL 61 > OR = 50 mg/dL [facility] Triglycerides 106 <150 mg/dL [facility] LDL 114(H) mg/dL (calc) [facility] Comment: Reference range: <100 Desirable range <100 mg/dL for primary prevention; <70 mg/dL for patients with CHD or diabetic patients with > or = 2 CHD risk factors. LDL-C is now calculated using the Briana calculation, which is a validated novel method providing better accuracy than the Friedewald equation in the estimation of LDL-C. Cordell HUI et al. BLAYNE. 2013;310(19): 7238-3566 (http://education.[employer]plan [employer].Powerit Solutions/faq/ZJM072) Chol/HDL ratio 3.2 <5.0 (calc) [facility] Non-HDL, (LDL+VLDL) 135(H) <130 mg/dL (calc) [facility] Comment: For patients with diabetes plus 1 major ASCVD risk factor, treating to a non-HDL-C goal of <100 mg/dL (LDL-C of <70 mg/dL) is considered a therapeutic option. 02/20/2025 7:48 AM CDT 02/20/2025 7:50 AM CDT Narrative [facility] - 02/21/2025 3:00 AM CDT FASTING:YES Patient Report History copied from and originally reported to client [id number] in site ([facility]) David Chowdary MD LAB BLOOD ORDERABLES Final Re sult Performing Organization Address [facility]/ZIP Co de Phone Number [facility] [address] [place] [address] * (ABNORMAL) Basic metabolic panel (02/20/2025 7:48 AM CDT) Glucose 90 65 - 99 mg/dL [facility] Comment: Fasting reference interval BUN 22 7 - 25 mg/dL [facility] Creatinine 1.18(H) 0.60 - 1.00 mg/dL [facility] eGFR 47(L) > OR = 60 mL/min/1.7 3m2 [facility] BUN/creat ratio 19 6 - 22 (calc) [facility] Sodium 142 135 - 146 mmol/L [facility] Potassium, pl 4.0 3.5 - 5.3 mmol/L [facility] Chloride 106 98 - 110 mmol/L [facility] CO2 28 20 - 32 mmol/L [facility] Calcium 9.3 8.6 - 10.4 mg/dL [facility] 02/20/2025 7:48 AM CDT 02/20/2025 7:50 AM CDT Narrative [facility] - 02/21/2025 3:00 AM CDT FASTING:YES Patient Report History copied from and originally reported to client [id number] in site ([facility]) us David Chowdary MD LAB BLOOD ORDERABLES Final Re sult [facility] [address] [place] [address] * (ABNORMAL) Comprehensive metabolic panel (01/05/2025 10:42 AM CDT) Glucose 89 65 - 99 mg/dL [facility] Comment: Fasting reference interval BUN 25 7 - 25 mg/dL [facility] Creatinine 1.44(H) 0.60 - 1.00 mg/dL [facility] [place] eGFR 37(L) > OR = 60 mL/min/1.7 3m2 [facility] BUN/creat ratio 17 6 - 22 (calc) [facility] Sodium 140 135 - 146 mmol/L [facility] Potassium, pl 5.0 3.5 - 5.3 mmol/L [facility] Chloride 104 98 - 110 mmol/L [facility] CO2 28 20 - 32 mmol/L [facility] Calcium 9.5 8.6 - 10.4 mg/dL [facility] [facility] Protein, sr 7.5 6.1 - 8.1 g/dL [facility] Albumin 4.6 3.6 - 5.1 g/dL [facility] GLOBULIN 2.9 1.9 - 3.7 g/dL (calc) [facility] Alb/glob ratio 1.6 1.0 - 2.5 (calc) [facility] Bilirubin, total 0.6 0.2 - 1.2 mg/dL [facility] Alk phos 67 37 - 153 U/L [facility] AST 25 10 - 35 U/L [facility] ALT (SGPT) 19 6 - 29 U/L [facility] Blood 01/05/2025 10:4 2 AM CDT 01/05/2025 10:43 AM CDT us Mishel Soto MD LAB BLOOD ORDERABL ES Final Result [facility] [address] [place] [address] * (ABNORMAL) CBC with auto differential (01/05/2025 10:41 AM CDT) WBC 5.2 3.8 - 10.8 Thousand/u L [facility] RBC, POC 4.45 3.80 - 5.10 Million/uL [facility] Hgb 14.7 11.7 - 15.5 g/dL [facility] Hct 45.3(H) 35.0 - 45.0 % [facility] MCV 101.8(H) 80.0 - 100.0 fL [facility] MCH 33.0 27.0 - 33.0 pg [facility] MCHC 32.5 32.0 - 36.0 g/dL [facility] Comment: For adults, a slight decrease in the calculated MCHC value (in the range of 30 to 32 g/dL) is most likely not clinically significant; however, it should be interpreted with caution in correlation with other red cell parameters and the patient's clinical condition. Rdw 13.3 11.0 - 15.0 % [facility] Platelets 203 140 - 400 Thousand/u L [facility] MPV 10.5 7.5 - 12.5 fL [facility] Neutrophils, abs 2,137 1,500 - 7,800 cells/uL [facility] Lymphocytes, abs 2,163 850 - 3,900 cells/uL [facility] Monocyte abs 614 200 - 950 cells/uL [facility] Eosinophils, abs 234 15 - 500 cells/uL [facility] Basophils, abs 52 0 - 200 cells/uL [facility] Neutrophils 41.1 % [facility] Lymphocyte pct 41.6 % [facility] Monocytes 11.8 % [facility] Eosinophils 4.5 % [facility] Basophils 1.0 % [facility] Blood 01/05/2025 10:4 1 AM CDT 01/05/2025 10:41 AM CDT Mishel Soto MD LAB BLOOD ORDERABL ES Final Result Performing Organization Address City/[facility]/ZIP Co de Phone Number [facility] [address] [place] [address] * REFLEXIVE URINE CULTURE (01/05/2025 10:37 AM CDT) Urine culture [facility] Comment:NO CULTURE INDICATED 01/05/2025 10:3 7 AM CDT 01/05/2025 10:38 AM CDT Mishel Soto MD LAB MICROBIOLOGY - GENERAL ORDERABLES Final Result Performing Organization Address City/[facility]/ZIP Co de Phone Number [facility] [address] [place] [phone] * (ABNORMAL) Urinalysis reflex to microscopic and culture Urine, clean voided (01/05/2025 10:37 AM CDT) Color, ur YELLOW YELLOW [facility], [facility] Specific gravity 1.009 1.001 - 1.035 [facility] pH, ur < OR = 5.0(A) 5.0 - 8.0 [facility] Glucose, ur 2+(A) NEGATIVE [facility] Bilirubin, ur NEGATIVE NEGATIVE [facility] Ketones, ur NEGATIVE NEGATIVE [facility] Blood, ur NEGATIVE NEGATIVE [facility] Protein, ur, quant NEGATIVE NEGATIVE [facility] Nitrites, ur NEGATIVE NEGATIVE [facility] Leukocyte esterase, ur NEGATIVE NEGATIVE [facility] WBC, ur NONE SEEN < OR = 5 /HPF [facility] RBC, ur NONE SEEN < OR = 2 /HPF [facility] Epithelial cells, squamous, ur NONE SEEN < OR = 5 /HPF [facility] Bacteria, ur, quant NONE SEEN NONE SEEN /HPF [facility] Hyaline cast NONE SEEN NONE SEEN /LPF [facility] Note [facility] Comment: This urine was analyzed for the presence of WBC, RBC, bacteria, casts, and other formed elements. Only those elements seen were reported. Urine, clean voided 01/05/2025 10:37 AM CDT 01/05/2025 10:38 AM CDT us Mishel Soto MD LAB MICROBIOLOGY - GENERAL ORDERABLES Final Result [facility] [address] [place] [phone] from Last 3 Months Insurance MEDICARE [facility] MEDICARE MEDICARE [facility] MEDICARE SUPPLEMENT Care Teams Shuttler Relationship Specialty Start Date End Date David Chowdary MD PCP - General Internal Medicine 12/03/17 Mishel Soto MD [address] [facility] [address] [place] [address] Consulting Physician Rheumatology 10/24/24
--- OUTSIDE RECORDS SUMMARY | 2025-04-06 08:38 | XMS_ITS | Clinical Summary ---
Author Organization [facility] Address [address] [address] Care Team Providers Care Heavy Equipment Supervisor Name Role Phone David Chowdary MD Primary Care Provider [phone] Source Comments [facility],non-owned Affiliates and Associated Physician Practices is amultiple site organization consisting of ambulatory clinics and hospital sitesin [place], [place], [place] and [place]. This disclosure is being madepursuant to the Care Everywhere program and may not contain all information available regarding this patient. Last updated 18.[facility] Allergies Active Allergy Reactions Criticality Noted Date Comments Sulfamethoxazole W-Trimethoprim Rash Medium 11/12/2017 Cefprozil Rash Medium 04/07/2012 Chlorpheniramine Maleate Rash Medium 04/07/2012 Ciprofloxacin Rash Medium 04/07/2012 Cold-Allergy Childrens Rash Medium 04/07/2012 Diflunisal Other Low 04/07/2012 GI intolerance, GI intolerance Pseudoephedrine Base Other 11/12/2017 other Doxycycline Other 11/12/2017 Other Alendronic Acid Other 11/12/2017 Asthma Exacerbation Fv Diphedryl Allergy Rash Medium 04/07/2012 Kdc:Red Dye+Chlorhexidine+Propylene Glycol Other Low 04/07/2012 Thick, red raised itchy rash, Thick, red raised itchy rash Lomotil Rash Medium 04/07/2012 Metronidazole Other Low 04/07/2012 GI intolerance, GI intolerance Molds & Smuts Other Low 04/07/2012 Sneezing, stuffy nose, Sneezing, stuffy nose seasonal allergies [Other] Other Low 2 Sneezing and stuffy nose Received name: Cats Sulfamethoxazole-Trimethopri m Other Low 04/07/2012 GI intolerance, GI intolerance Medications * Be aware that medications may not be up to date on this document. Alwaysverify current medications with the patient. folic acid (FOLVITE) 1 MG tablet Take 1 mg by mouth DAILY. 90 tablet 4 8 Active meloxicam (MOBIC) 15 MG tablet Take 15 mg by mouth. 90 tablet 1 8 Active esomeprazole (NEXIUM) 20 MG capsule Take by mouth. 7 Active denosumab (PROLIA) 60 MG/ML SC injection Inject 60 mg subcutaneously Every 180 days. 1 syringe 0 6 Active etanercept (ENBREL SURECLICK) 50 MG/ML auto-injector pen Inject 50 mg subcutaneously every 7 days 3.92 mL 3 8 Active verapamil CR (ISOPTIN-SR) 240 MG tablet Daily. 1 1/2 tab. Active levothyroxine (SYNTHROID) 137 MCG tablet 1 tablet Activ e montelukast (SINGULAIR) 10 MG tablet 1 tablet Active Ascorbic Acid (VITAMIN C CR) 1000 MG 1 tablet Active Biotin 1000 MCG 1,000 mg Active albuterol HFA (PROVENTIL;COLTON TOLIN;PROAIR) 108 (90 BASE) MCG/ACT inhaler Inhale 1 puff by mouth Active cetirizine (ZYRTEC ALLERGY) 10 MG gel capsule 1 capsule once daily as needed Active cyanocobalamin 100 MCG tablet Take 500 mcg by mouth Active bisacodyl EC (DULCOLAX) 5 MG tablet Take 15 mg by mouth once Active fluticasone propionate (FLONASE) 50 MCG/ACT nasal spray Comfort 1 spray into the nose once daily as needed Active cycloSPORINE (RESTASIS) 0.05 % ophthalmic suspension 1 drop by Ophthalmic route Active fish oil/omega-3 fatty acids (PROMEGA;CARDI -OMEGA 3) 1000 MG capsule Take 1,000 mg by mouth Active multivitamin (POLY--SELENE) oral solution 1 tablet Active Calcium Carbonate-Teresa min D 600-125 MG-UNIT Active methotrexate 2.5 MG tablet Take 6 tablets by mouth every 7 days 72 tablet 8 Active hydroxychloroq uine (PLAQUENIL) 200 MG tablet Take 1 tablet by mouth 2 times daily 180 tablet 1 8 Active Active Problems Problem Noted Date Diagnosed Date Osteoporosis 08/23/2017 Other osteoporosis without current pathological fracture 06/04/2017 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 (AF LURIA, FLUZONE TRIVALENT; 6MO+) (IIV3) 03/03/2014 DTaP VACCINE IM (6wk-6yrs) 06/25/2013 INFLUENZA VACCINE, HIGH-DOSE , QUADR. (FLUZONE HIGH-DOSE QUADRIVALENT; 65Y+), 0.7 ML (HD-IIV4) 03/06/2018 Pneumococcal Pcv13 Conj 06/25/2013 Family History Medical History Relation Name Comments Heart Disease Brother Status: Alive Alzheimer's Disease Father CVA Father Arthritis - Rheumatoid Maternal Aunt Stat us: Alive Heart Disease Mother Relation Name Status Comments Brother Alive Father Maternal Aunt Alive Mother Social History Tobacco Use Types Packs/Day Years Used Date Smoking Tobacco: Never Smokeless Tobacco: Never Alcohol Use Standard Drinks/Week Comments No 0 (1 standard drink = 0.6 oz pur e alcohol) Comments No Sex and Gender Information Value Date Recorded Sex Assigned at Not on file Legal Sex Female 5:18 PM NUB CARD TENDER Gender Identity Not on file Sexual Orientation Not on file Last Filed Vital Signs Vital Sign Reading Time Taken Comments Blood Pressure 131/75 12/10/2017 2:11 PM CDT Pulse 73 12/10/2017 2:11 PM CDT Temperature 36.7 C (98.1 F) 12/10/2017 2:11 PM CDT Respiratory Rate 18 12/10/2017 2:11 PM CDT Oxygen Saturation 95% 12/10/2017 2:11 PM CDT Inhaled Oxygen Concentration - - Weight 88.9 kg (196 lb) 11/12/2017 10:27 AM CDT Height 168.9 cm (5' 6.5) 11/12/2017 10:27 AM CD T Body Mass Index 31.16 11/12/2017 10:27 AM CDT Plan of Treatment Health Maintenance Due Date Last Done Comments BONE DENSITY TESTING 1945 ZOSTER VACCINE (1 of 2) 1997 PNEUMOCOCCAL VACCINE 50+ (2 of 2 - PCV20 or PCV21) 06/25/2014 06/25/2013 SCREENING FOR DIABETES 12/09/2020 8, 11/04/2017, 10/01/2017, Additional history exists Respiratory Syncytial Virus (RSV) Vaccine Pt: or over 60 yrs (1 - 1-dose 75+ series) 2022 DTAP/TDAP/TD VACCINES (2 - Tdap) 06/25/2023 06/25/2013 DEPRESSION SCREENING 05/25/2024 COVID-19 VACCINE (1 - season) 2025 INFLUENZA VACCINE (#1) 2025 03/06/2018, 2013 HEPATITIS C SCREENING Completed 04/09/2012 HEPATITIS B VACCINE Aged Out No longe r eligible based on patient's age to complete this topic HIB VACCINE Aged Out No longer eligi ble based on patient's age to complete this topic HPV VACCINE Aged Out No longer eligi ble based on patient's age to complete this topic MENINGOCOCCAL (Group B) VACCINE SHARED DECISION-MAKING Aged Out No longer eligible based on patient's age to complete this topic MENINGOCOCCAL GROUPS A/C/Y/W VACCINE Aged Out No longer eligible based on patient's age to complete this topic Procedures Procedure Name Priority Date/Time Associated Diagnosis Comments COMPREHENSIVE METABOLIC PANEL Routine 12/09/2017 8:09 AM CDT Other osteoporosis without current pathological fracture Therapeutic drug monitoring Rheumatoid arthritis, seropositive, multiple sites Encounter for long-term (current) drug use Encounter for medication monitoring HEPATITIS C ANTIBODY Routine 04/09/2012 9:37 AM NUB CARD TENDER from Last 3 Months or Most Recently Relevant to Health Maintenance Results * (ABNORMAL) COMPREHENSIVE METABOLIC PANEL (12/09/2017 8:09 AM CDT) Glucose 102(H) 65 - 99 mg/dL [facility] Comment: Fasting reference interval For someone without known diabetes, a glucose value between 100 and 125 mg/dL is consistent with prediabetes and should be confirmed with a follow-up test. BUN 17 7 - 25 mg/dL [facility] Creatinine 1.23(H) 0.60 - 0.93 mg/dL [facility] Comment: For patients >49 years of age, the reference limit for Creatinine is approximately 13% higher for people identified as -Cambodian. eGFR by MDRD 44(L) > OR = 60 mL/min/1. 73m2 [facility] eGFR by MDRD 51(L) > OR = 60 mL/min/1. 73m2 [facility] BUN/Creatinine Ratio 14 6 - 22 (calc) [facility] Sodium 142 135 - 146 mmol/L [facility] Potassium 4.2 3.5 - 5.3 mmol/L [facility] Chloride 107 98 - 110 mmol/L [facility] CO2 28 20 - 31 mmol/L [facility] Calcium 9.3 8.6 - 10.4 mg/dL [facility] Protein Total 6.9 6.1 - 8.1 g/dL [facility] Albumin 4.0 3.6 - 5.1 g/dL [facility] Globulin Total 2.9 1.9 - 3.7 g/dL (calc) [facility] Albumin/Globulin Ratio 1.4 1.0 - 2.5 (calc) [facility] Bilirubin Total 0.4 0.2 - 1.2 mg/dL [facility] Alkaline Phosphatase 73 33 - 130 U/L [facility] AST 26 10 - 35 U/L [facility] ALT 19 6 - 29 U/L [facility] Comment: Test Performed at: [facility] [address] [address] DAYAMI TELLEZ DO,MPH Blood BLOOD SPECIMEN / Unknown 12/09/2017 8:09 AM CDT 12/09/2017 8:11 AM CDT us Mishel Soto MD LAB - CHEMISTRY OR DERABLES Final Result [facility] [address] [place] [address] * HEPATITIS C ANTIBODY (04/09/2012 9:37 AM NUB CARD TENDER) Hepatitis C Antibody NON-REACTI VE NON-REACT [facility]) Signal/Cutoff 0.02 <1.00 [facility] ([facility]) Comment: Test Performed at: [facility] [address] [place] [place] [address] DAYAMI TELLEZ DO,MPH 04/09/2012 9:37 AM NUB CARD TENDER 04/09/2012 9:37 AM NUB CARD TENDER us Mishel Soto MD LAB - CHEMISTRY OR DERABLES Edited Result - Final [facility] ([facility]) [id number] from Last 3 Months or Most Recently Relevant to Health Maintenance Insurance MEDICARE [facility] MEDICARE [facility] Care Teams Heavy Equipment Supervisor Relationship Specialty Start Date End Date David Chowdary MD [address] [place] [address] PCP - General 03/02/12
--- OUTSIDE RECORDS SUMMARY | 2025-04-06 08:38 | XMS_ITS | Encounter Summary ---
Author Organization [facility] Healthcare Address [address] [place] [address] Care Team Providers Care Substance Abuse Nurse Name Role Phone David Chowdary MD Primary Care Provider [phone] Mishel Soto MD Unavailable + Encounter Details Date Type Department Care Team (Late st Contact Info) Description 04/05/2024 Orders Only [facility] Information Management [address] [place] [id number] Mishel Soto MD [address] [facility] [address] [place] [address] Social History Tobacco Use Types Packs/Day Years [...] AM CDT Legal Sex Female 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 Gender Identity Female 08/18/2018 7:08 AM CDT Sexual Orientation Straight 08/18/2018 7: 08 AM CDT documented as of this encounter Plan of Treatment Not on file documented as of this encounter Procedures Procedure Name Priority Date/Time Associated Diagnosis Comments SCAN - RADIOLOGY/IMAGING 04/05/2024 documented in this encounter Results * SCAN - RADIOLOGY/IMAGING (04/05/2024) Anatomical Region Laterality Modality Other us Mishel Soto MD nal Result documented in this encounter Visit Diagnoses Not on filedocumented in this encounter Care Teams Substance Abuse Nurse Relationship Specialty Start Date End Date David Chowdary MD PCP - General Internal Medicine 12/03/17 Mishel Soto MD [address] [facility] [address] [place] [address] Consulting Physician Rheumatology 10/24/24 documented as of this encounter
[2025-04-06 09:19] LABS: Hematocrit 40.8 % (37.0-47.0); Hemoglobin 13.6 g/dL (12.0-15.0); Immature Granulocyte Percent A 0.2 % (0-0.5); Lymphocytes Absolute Auto 1.86 K/mm3 (0.9-3.2); Mean Corpuscular HGB Conc 33.3 g/dl (32-36); Mean Corpuscular Hemoglobin 32.4 pg (26-34); Mean Corpuscular Volume 97.1 fl (80-100); Nucleated Red Blood Cells Absolute Auto 0.000 K/mm3 (0.0-0.012); Nucleated Red Blood Cells Perc 0.0 % (0.0-0.2); Platelet Count Result 198 k/mm3 (150-375); Red Blood Count 4.20 M/mm3 (4.2-5.4); White Blood Count 4.9 K/mm3 (4.5-10.0)
[2025-04-06 09:36] LABS: Add Urine Microscopic? YES; Appearance Urine Clear (Clear); Glucose Urine UA 3+ mg/dL (Negative); Leukocyte Esterase Ur 1+ LEU/UL (Negative); Nitrate Urine Negative (Negative); Non Pathogenic Casts 0-2; Specific Grav Ur 1.020 (1.001-1.035)
[2025-04-06 09:45] LABS: Alanine Aminotransferase 21 U/L (6-35); Albumin Level 4.2 g/dL (3.5-5.1); Alkaline Phosphatase 90 U/L (38-126); Anion Gap 7 mmol/L (4-12); Aspartate Amino Transferase 28 U/L (14-36); Bilirubin,Total 0.7 mg/dL (0.2-1.3); Blood Urea Nitrogen 29 mg/dL (7-17); Calcium 9.4 mg/dL (8.4-10.2); Carbon Dioxide 28 mmol/L (22-30); Chloride 105 mmol/L (98-107); Estimated CRCL calculation 31 ml/min; Estimated Glomerular Filt Rate 41; Glucose 105 mg/dL (65-110); Lipase 91 U/L (23-300); Potassium 3.9 mmol/L (3.4-5.0); Sodium 140 mmol/L (137-145); Total Protein 7.5 g/dL (6.3-8.2)
--- NOTE | 2025-04-06 09:53 | ED.ABDPAIN ---
HPI - Abdominal Pain General Chief Complaint: Abdominal Pain Stated Complaint: abdominal pain Time Seen by Provider: 04/06/25 09:05 Source: patient Mode of arrival: ambulatory Limitations: no limitations History of Present Illness HPI narrative: This is a 80-year-old female that presents emergency department for left-sided abdominal pain. Reports history of diverticulitis, her pain feels similar. Denies fevers, vomiting, diarrhea. Related Data Home Medications ?Medication ?Instructions ?Recorded ?Confirmed ?Last Taken ?Type calcium 600 mg (as carbonate)-vit 1 tablet PO DAILY 06/14/19 03/17/25 Unknown History D3 20 mcg (800 unit) chewable tablet (Caltrate plus D) etanercept 50 mg/mL (1 mL) 50 mg subcut WEEKLY 06/14/19 03/17/25 Unknown History subcutaneous syringe (Enbrel) mecobalamin (vitamin B12) 1,000 1,000 mcg sublingual DAILY 06/14/19 03/17/25 Unknown History mcg disintegrating tablet,sublingual methotrexate sodium 2.5 mg tablet 15 mg PO WEEKLY 11/01/20 03/17/25 Unknown History terbinafine HCl 250 mg tablet 250 mg PO .7 days.month 05/05/22 03/17/25 Unknown History biotin 1 mg capsule 1 mg PO DAILY 01/13/24 03/17/25 Unknown History folic acid 1 mg tablet 1 mg PO DAILY 01/13/24 03/17/25 Unknown History omeprazole 20 mg capsule,delayed 20 mg PO DAILY 01/13/24 03/17/25 Unknown History release vitamin B complex 1 tablet PO DAILY 01/13/24 03/17/25 Unknown History Probiotic (Align) BYMOUTH 05/23/24 03/17/25 Unknown History triamcinolone acetonide 55 mcg 2 spray intranasal DAILY PRN 05/23/24 03/17/25 Unknown History nasal spray aerosol (Nasacort) loratadine 10 mg tablet (Allergy 10 mg PO DAILY PRN 10/19/24 03/17/25 Unknown History Relief (loratadine)) acetaminophen 500 mg capsule 500 mg PO TID 03/17/25 03/17/25 Unknown History vitamin b6 BYMOUTH 03/17/25 03/17/25 Unknown History Allergies Allergy/AdvReac Type Severity Reaction Status Date / Time alendronate sodium Allergy Unknown ASTHMA Verified 03/28/25 09:50 EXACERBATION cefprozil Allergy Unknown RASH Verified 03/28/25 09:50 chlorpheniramine Allergy Unknown RASH Verified 03/28/25 09:50 diflunisal Allergy Unknown NAUSEA, Verified 03/28/25 09:50 VOMITING, RASH doxycycline Allergy Unknown RASH Verified 03/28/25 09:50 sulfamethoxazole Allergy Unknown Nausea and Verified 03/28/25 09:50 Vomiting trimethoprim Allergy Unknown Nausea and Verified 03/28/25 09:50 Vomiting TUMERIC Allergy Intermediate Wheezing Uncoded 03/28/25 09:50 ATROPINE SULFATE Allergy Unknown RASH Uncoded 03/28/25 09:50 BROMPHENIRAMINE MALEATE Allergy Unknown RASH Uncoded 03/28/25 09:50 CIPROFLOXACIN HCL Allergy Unknown RASH Uncoded 03/28/25 09:50 DEXTROMETHORPHAN HBR Allergy Unknown RASH Uncoded 03/28/25 09:50 DIPHENHYDRAMINE HCL Allergy Unknown RASH Uncoded 03/28/25 09:50 DIPHENOXYLATE HCL Allergy Unknown RASH Uncoded 03/28/25 09:50 METRONIDAZOLE HCL Allergy Unknown NAUSEA, Uncoded 03/28/25 09:50 VOMITING PHENYLPROPANOLAMINE HCL Allergy Unknown RASH Uncoded 03/28/25 09:50 PSEUDOEPHEDRINE HCL Allergy Unknown Rash Uncoded 03/28/25 09:50 Review of Systems Review of Systems: All systems reviewed & are unremarkable except as noted in HPI and below PMFSH Past Medical History Medical History (Updated 04/06/25 @ 12:32 by Alecia Hdez PA-C) Trigger middle finger of right hand BMI 27.0-27.9,adult TMJ arthralgia Poison odell BMI 28.0-28.9,adult Peripheral neuropathy Personal history of COVID-19 Sore throat BMI 29.0-29.9,adult Urinary incontinence Osteoporosis IGT (impaired glucose tolerance) 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 Chronic cough COVID May 2022, Rx Paxlovid Trochanteric bursitis of left hip BMI 30.0-30.9,adult Neuroma Encounter for Medicare annual wellness exam Multiple drug allergies MALCOLM on CPAP CKD (chronic kidney disease) BMI 32.0-32.9,adult Obstructive sleep apnea (~04/2020) Sinusitis, chronic Pelvis fracture 2015 Asthma Lung nodules 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 Hyperglycemia, unspecified Coronary artery calcification seen on CT scan History of cataract Cataracts, bilateral Follow up LLQ abdominal pain Diverticulitis LUQ abdominal pain Blurred vision, right eye SVT (supraventricular tachycardia) Reactive airway disease Creatinine elevation Hypersomnolence Multiple allergies GERD (gastroesophageal reflux disease) Insomnia BMI 31.0-31.9,adult Encounter for routine adult health examination without abnormal findings Colon cancer screening Vitamin B12 deficiency Osteopenia Rheumatoid arthritis Hypothyroidism (acquired) Benign essential hypertension On curriculum counselor drug therapy Surgical History Surgical History S/P cataract surgery Bilateral 2020 History of sinus surgery H/O total knee replacement bilateral H/O hysterectomy with oophorectomy Hx of cholecystectomy History of tonsillectomy Family History Family History Other Family history of coronary artery disease Social History Social History Smoking status: Never smoker Second hand tobacco smoke exposure: No Alcohol intake: current Lack of Transportation: No Lack of Food: Never True Current Housing: I Have Housing Concerned About Future Housing: No Difficulty Paying Gas/Electric Bills: No Difficulty Paying for Meds: No Currently Unemployed: No Education: Bachelor's Degree Difficulty w/ Childcare or Family Care: No Living arrangements: with family Gender identity (if verbalized by the patient): Female Exam Narrative: GENERAL: Well-appearing, well-nourished, and in no acute distress. HEAD: Normocephalic, atraumatic. EYES: EOMI. CHEST: Clear to auscultation. No respiratory distress. No wheezes rales or rhonchi HEART: Regular rate and rhythm. No murmur heard. Normal peripheral pulses. ABDOMEN: Soft, nondistended, normal active bowel sounds. Tender to palpation throughout the left side of the abdomen, without guarding EXTREMITIES: Normal range of motion. No edema. SKIN: Warm, dry, no rash. NEURO: No focal deficits. Alert and oriented x3. PSYCH: Normal mood and affect Course Vital Signs Vital signs: Vital Signs Temperature 97.6 F 04/06/25 08:46 Pulse Rate 53 L 04/06/25 08:46 Respiratory Rate 15 04/06/25 08:46 Blood Pressure 130/55 L 04/06/25 08:46 Pulse Oximetry 100 04/06/25 08:46 Oxygen Delivery Room Air 04/06/25 08:46 Temperature 97.6 F 04/06/25 08:46 Pulse Rate 53 L 04/06/25 08:46 Respiratory Rate 15 04/06/25 08:46 Blood Pressure 130/55 L 04/06/25 08:46 Pulse Oximetry 100 04/06/25 08:46 Oxygen Delivery Room Air 04/06/25 08:46 MDM - Abdominal Pain MDM Narrative Medical decision making narrative: Patient presents to the emergency department for left-sided abdominal pain. She is afebrile and nontoxic appearing. Her vitals are stable. Cbc without leukocytosis. Metabolic panel with kidney function that appears to be around baseline. Urine with 6-10 white blood cells, patient does not have any urinary symptoms. Will send this for culture. CT abdomen pelvis without acute findings. Patient was updated on her workup and agrees with plan of care. She is to follow up with primary better. She was given warnings to return to the ER Differential Diagnosis Differential diagnosis: Likely abdominal pain, constipation and diverticulitis Lab Data Attestation: I reviewed the patient's lab results. 04/06/25 09:15 04/06/25 09:15 Labs: Lab Results 04/06/25 04/06/25 Range/Units 09:15 09:25 WBC 4.9 (4.5-10.0) K/mm3 RBC 4.20 (4.2-5.4) M/mm3 Hgb 13.6 (12.0-15.0) g/dL Hct 40.8 (37.0-47.0) % MCV 97.1 (80-100) fl MCH 32.4 (26-34) pg MCHC 33.3 (32-36) g/dl RDW 13.9 (11.5-14.5) % Plt Count 198 (150-375) k/mm3 MPV 9.7 (7.4-10.4) fl Immature Gran % (Auto) 0.2 (0-0.5) % Neut % (Auto) 43.0 L (45.5-73.1) % Lymph % (Auto) 38.2 (18.3-44.2) % [place] % (Auto) 13.1 H (2.6-8.5) % Eos % (Auto) 4.5 H (0-4.4) % Baso % (Auto) 1.0 (0.2-1.2) % Lymph # (Auto) 1.86 (0.9-3.2) K/mm3 [place] # (Auto) 0.6 (0.1-0.6) K/mm3 Eos # (Auto) 0.2 (0-0.3) K/mm3 Baso # (Auto) 0.1 (0.0-0.1) K/mm3 Abs Immat Gran (auto) 0.01 (0.00-0.031) K/mm3 Absolute Neuts (auto) 2.1 (1.3-6.7) K/mm3 Absolute Nucleated RBC 0.000 (0.0-0.012) K/mm3 Nucleated RBC % 0.0 (0.0-0.2) % Sodium 140 (137-145) mmol/L Potassium 3.9 (3.4-5.0) mmol/L Chloride 105 (98-107) mmol/L Carbon Dioxide 28 (22-30) mmol/L Anion Gap 7 (4-12) mmol/L BUN 29 H (7-17) mg/dL Creatinine 1.25 H (0.7-1.0) mg/dL Estim Creat Clear Calc 31 ml/min Estimated GFR 41 L (59 - ) Glucose 105 (65-110) mg/dL Calcium 9.4 (8.4-10.2) mg/dL Total Bilirubin 0.7 (0.2-1.3) mg/dL AST 28 (14-36) U/L ALT 21 (6-35) U/L Alkaline Phosphatase 90 (38-126) U/L Total Protein 7.5 (6.3-8.2) g/dL Albumin 4.2 (3.5-5.1) g/dL Lipase 91 (23-300) U/L Urine Color Yellow (Yellow) Urine Appearance Clear (Clear) Urine pH 5.0 (5.0-9.0) Ur Specific [place] 1.020 (1.001-1.035) Urine Protein Negative (Negative) mg/dL Urine Glucose (UA) 3+ H (Negative) mg/dL Urine Ketones Negative (Negative) mg/dL Ur Blood (Man) Negative (Negative) Urine Nitrate Negative (Negative) Urine Bilirubin Negative (Negative) Urine Urobilinogen 0.2 (<2.0) mg/dL Leukocyte Esterase Rfl 1+ H (Negative) CHUCK/UL Urine RBC 0-2 (0-2) /hpf Urine WBC 6-10 H (0-3) /hpf Ur Squamous Epith Cells None seen (Few) /hpf Urine Bacteria None seen /hpf Urine Casts 0-2 Imaging Data Radiologist's impression: ITS Impressions Abdomen/Pelvis CT 04/06/25 10:39 IMPRESSION: No acute findings identified to explain source of patient's symptoms; several chronic appearing findings as above. Critical Care Time Critical Care Time Critical Care Time: No Discharge Plan Discharge Clinical Impression: Abdominal pain Qualifiers: Abdominal location: unspecified location Qualified Code(s): R10.9 - Unspecified abdominal pain Patient Disposition: Home Condition: Stable Instructions: Diverticulitis Diet (ED), Abdominal Pain (ED) Additional Instructions: Return to the ER if you experience fever, abdominal pain with nausea and vomiting, you are unable to keep down liquids or solids, or any other symptoms that are concerning to you Your blood work and imaging is reassuring today. You did have a few white blood cells in your urine, as we discussed we will wait on antibiotics pending culture results Trial a liquid diet for the next day or two until your starting to feel better if this is the beginning of a diverticulitis flare. Then you may slowly increase your diet back to normal Follow up with your primary care doctor Patient Language: Mongolian Prescriptions: No Action mecobalamin (vitamin B12) 1,000 mcg tablet,disintegrating 1,000 mcg SUBLINGUAL DAILY Rx Instructions: place tablet under tongue and allow to dissolve for at least30 secs before swallowing Enbrel 50 mg/mL (1 mL) syringe 50 mg SUB-Q WEEKLY Caltrate 600 plus D 600 mg (1,500 mg)-800 unit tablet,chewable 1 tablet PO DAILY methotrexate sodium 2.5 mg tablet 15 mg PO WEEKLY Patient Comments: Takes 6 tablets weekly Fish oil capsule See Rx Instructions BYMOUTH BID Qty: 120 0RF Rx Instructions: Take (2) 1200 U capsules by oral route twice daily. biotin 1 mg capsule 1 mg PO DAILY folic acid 1 mg tablet 1 mg PO DAILY omeprazole 20 mg capsule,delayed release(DR/EC) 20 mg PO DAILY vitamin B complex Tablet 1 tablet PO DAILY loratadine [Allergy Relief (loratadine)] 10 mg tablet 10 mg PO DAILY PRN terbinafine HCl 250 mg tablet 250 mg PO .7 days.month Patient Comments: Takes 1 week out of every month triamcinolone acetonide [Nasacort] 55 mcg aerosol,spray 2 spray intranasal DAILY PRN Rx Instructions: administer into each nostril Probiotic (Align) BYMOUTH acetaminophen 500 mg capsule 500 mg PO TID diclofenac sodium 1 % gel 2 g topical TID PRN (Reason: aches) Qty: 200 0RF Rx Instructions: apply to single elbow, wrist or hand; for hand includes palm/fingers/back of hand Please issue patient 2 x 100 gram tubes. vitamin b6 BYMOUTH montelukast 10 mg tablet See Rx Instructions .ROUTE .COMPLEX Qty: 90 1RF Dose Instruction: TAKE 1 TABLET BY MOUTH DAILY Rx Instructions: TAKE 1 TABLET BY MOUTH DAILY Prolia 60 mg/mL syringe 60 mg subcut [id number] Qty: 1 0RF nystatin 100,000 unit/gram powder 1 applic topical TID Qty: 30 0RF albuterol sulfate 90 mcg/actuation HFA aerosol inhaler See Rx Instructions .ROUTE .COMPLEX Qty: 8.5 3RF Dose Instruction: INHALE 1 PUFF BY MOUTH EVERY 4 HOURS NEEDED FOR SHORTNESS OF BREATH OR WHEEZING Rx Instructions: INHALE 1 PUFF BY MOUTH EVERY 4 HOURS NEEDED FOR SHORTNESS OF BREATH OR WHEEZING levothyroxine 137 mcg tablet See Rx Instructions .ROUTE .COMPLEX Qty: 90 1RF Dose Instruction: TAKE 1 TABLET BY MOUTH DAILY Rx Instructions: TAKE 1 TABLET BY MOUTH DAILY verapamil 240 mg tablet extended release See Rx Instructions .ROUTE .COMPLEX Qty: 135 2RF Dose Instruction: TAKE 1 AND 1/2 TABLETS BY MOUTH EVERY DAY WITH FOOD Rx Instructions: TAKE 1 AND 1/2 TABLETS BY MOUTH EVERY DAY WITH FOOD dapagliflozin propanediol [Farxiga] 10 mg tablet 10 mg PO DAILY Qty: 30 2RF Follow-up/Referrals: David Chowdary MD [Primary Care Provider, Internal Medicine]
--- OUTSIDE RECORDS SUMMARY | 2025-04-06 10:05 | XMS_ITS | Encounter Summary ---
Author Organization [facility] Address [address] [place] [id number] Care Team Providers Care Crew Foreman Name Role Phone David Valencia MD Primary Care Provider Rhoda Dietrich MD Unavailable [phone] Encounter Details Date Type Department Care Team (Late st Contact Info) Description 10/24/[address] [facility] [place] [id number] Ashley Martinez MD [address] [facility] [place], [place] [id number] Social History Tobacco Use Types Packs/Day Years [...] Acid reflux Asthma (HHS/HCC) Diverticulitis Emphysema, unspecified ([facility] HHS/HCC) Hypothyroidism, unspecified Kidney disease takes Farxiga MALCOLM on CPAP PONV (postoperative nausea and vomiting) SVT (supraventricular tachycardia) ([facility]) Wears partial dentures upper Allergies: Allergies Allergen [...] tablet (10 mg total) by mouth daily. [place] 3-6-9 Fatty Acids ([place] 3-6-9 COMPLEX) Cap [...] on filedocumented in this encounter Care Teams Crew Foreman Relationship Specialty Start Date End Date David Valencia MD [address] [facility] [address] [place] [id number] PCP - General INTERNAL MEDICINE 03/16/20 Rhoda Dietrich MD [address] [facility] [address] [place] [address] PULMONARY DISEASE 10/20/23 documented as of this encounter
--- OUTSIDE RECORDS SUMMARY | 2025-04-06 10:05 | XMS_ITS | Encounter Summary ---
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
--- OUTSIDE RECORDS SUMMARY | 2025-04-06 10:06 | XMS_ITS | Clinical Summary ---
Author Organization [facility] Address [address] [facility] [place] [address] Care Team Providers Care Fast Food Crew Member Name Role Phone David Chowdary MD Primary Care Provider [phone] Source Comments [facility],non-owned Affiliates and Associated Physician Practices is amultiple site organization consisting of ambulatory clinics and hospital sitesin [place], [place], [place] and [place]. This disclosure is being madepursuant to the Care Everywhere program and may not contain all information available regarding this patient. 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 eGFR by MDRD 44(L) > OR = [...] 29 U/L [facility] Comment: Test Performed at: [facility] [address] [address] DAYAMI TELLEZ DO,MPH Blood BLOOD SPECIMEN / Unknown 12/09/2017 8:09 AM CDT 12/09/2017 8:11 AM CDT us Mishel Soto MD LAB - CHEMISTRY OR DERABLES Final Result [facility] [id number] [place] [address] * HEPATITIS C ANTIBODY (04/09/2012 9:37 AM HOME SERVICE ADVISOR) Hepatitis C Antibody NON-REACTI VE NON-REACT [facility] ([facility]) Signal/Cutoff 0.02 <1.00 [facility] ([facility]) Comment: Test Performed at: [facility] [address] [place] [place] [address] DAYAMI TELLEZ DO,MPH 04/09/2012 9:37 AM HOME SERVICE ADVISOR 04/09/2012 9:37 AM HOME SERVICE ADVISOR us Mishel Soto MD LAB - CHEMISTRY OR DERABLES Edited Result - Final [facility] ([facility]) [id number] from Last 3 Months or Most Recently Relevant to Health Maintenance Insurance [facility] Care Teams Fast Food Crew Member Relationship Specialty Start Date End Date David Chowdary MD [address] [place] [address] PCP - General 03/02/12
--- OUTSIDE RECORDS SUMMARY | 2025-04-06 10:06 | XMS_ITS | Clinical Summary ---
Author Organization [facility] Address [address] [place] [address] Phone Care Team Providers Care Seismic Computer Name Role Phone David Chowdary MD Primary Care Provider [phone] Mishel Soto MD Unavailable + Allergies Active [...] 2018 Assessment & Plan (07/07/2018 8:23 AM LAB SUPPORT TECHNICIAN): FOB for eval; exlcude opportunistic infection Assessment & Plan (06/30/2018 2:55 PM LAB SUPPORT TECHNICIAN): Seen on CT Minimal sputum production on a daily basis Consider FOB to exclude atypical organisms especially in the setting of immunosuppression. 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 Diverticulitis of colon 03/05/2012 Encounters Date Type Department Care Team Description 04/06/2025 Telephone [facility] of [address] [phone] Silvio David MD 04/03/2025 10:00 AM LAB SUPPORT TECHNICIAN Office Visit [facility] Specialists of [address] [phone] Silvio David MD Age-related osteoporosis without current pathological fracture (Primary Dx); Vitamin D deficiency 03/08/2025 Documentation [facility] Rheumatology at [place] [id number] [facility] [address] [place] [phone] Mishel Soto MD Prolia Injection order [facility] 03/08/2025 Orders Only [facility] [address] [place] [phone] Mishel Soto MD Age-related osteoporosis without current pathological fracture (Primary Dx) 03/08/2025 Orders Only [facility] Rheumatology at [place] [address] [facility] [address] [place] [phone] Mishel Soto MD Age-related osteoporosis without current pathological fracture (Primary Dx) 02/20/2025 Orders Only [facility] [address] David Chowdary MD 01/05/2025 Orders Only [facility] Rheumatology at [place] [address] [address] Mishel Soto MD Seropositive rheumatoid arthritis [...] AM CDT Legal Sex Female 3:33 AM LAB SUPPORT TECHNICIAN Gender Identity Female 08/18/2018 7:08 AM CDT Sexual Orientation Straight 08/18/2018 7: 08 AM CDT Last Filed Vital Signs Vital Sign Reading Time Taken Comments Blood Pressure 122/60 04/03/2025 10:00 AM LAB SUPPORT TECHNICIAN Pulse 74 04/03/2025 10:00 AM LAB SUPPORT TECHNICIAN Temperature 36.8 C (98.3 F) 02/05/2023 11:06 AM CDT Respiratory Rate 14 04/03/2025 10:0 0 AM LAB SUPPORT TECHNICIAN Oxygen Saturation 98% 04/14/2024 10: 42 AM LAB SUPPORT TECHNICIAN Inhaled Oxygen Concentration - - Weight 76.6 kg (168 lb 12.8 oz) 025 10:00 AM LAB SUPPORT TECHNICIAN Height 170.2 cm (5' 7) 04/03/2025 10:0 0 AM LAB SUPPORT TECHNICIAN Body Mass Index 26.44 04/03/2025 10:00 AM LAB SUPPORT TECHNICIAN Plan of Treatment Health Maintenance Due Date [...] COMPREHENSIVE METABOLIC PANEL Routine 04/04/2025 7:52 AM LAB SUPPORT TECHNICIAN Seropositive rheumatoid arthritis of multiple sites ([facility]) Encounter for medication monitoring Encounter for long-term (current) use of medications CBC WITH AUTO DIFFERENTIAL Routine 04/04/2025 7:52 AM LAB SUPPORT TECHNICIAN Seropositive rheumatoid arthritis of multiple sites ([facility]) Encounter for medication monitoring Encounter for long-term (current) use of medications URINE CULTURE Routine 04/04/2025 7:52 AM LAB SUPPORT TECHNICIAN REFLEXIVE URINE CULTURE Routine 04/04/2025 7:52 AM LAB SUPPORT TECHNICIAN URINALYSIS AND REFLEX TO MICROSCOPIC AND CULTURE Routine 04/04/2025 7:52 AM LAB SUPPORT TECHNICIAN Seropositive rheumatoid arthritis of multiple sites ([facility]) Encounter for medication monitoring Encounter for long-term [...] CDT Seropositive rheumatoid arthritis of multiple sites ([facility]) Encounter for medication monitoring Encounter for long-term (current) use of medications CBC WITH AUTO DIFFERENTIAL Routine 01/05/2025 10:41 AM CDT Seropositive rheumatoid arthritis of multiple sites ([facility]) Encounter for medication monitoring Encounter for long-term (current) use of medications REFLEXIVE URINE CULTURE Routine 01/05/2025 10:37 AM CDT URINALYSIS AND REFLEX TO MICROSCOPIC AND CULTURE Routine 01/05/2025 10:37 AM CDT Seropositive rheumatoid arthritis of multiple sites ([facility]) Encounter for medication monitoring Encounter for long-term (current) use of medications from Last 3 Months Results * REFLEXIVE URINE CULTURE (04/04/2025 7:52 AM LAB SUPPORT TECHNICIAN) Urine culture [facility] Comment:CULTURE INDICATED - RESULTS TO FOLLOW 04/04/2025 7:52 AM LAB SUPPORT TECHNICIAN 04/04/2025 7:53 AM LAB SUPPORT TECHNICIAN Narrative [facility] - 04/05/2025 6:05 PM LAB SUPPORT TECHNICIAN FASTING:YES FASTING: YES us Mishel Soto MD LAB MICROBIOLOGY - GENERAL ORDERABLES Final Result [email or web address] [address] [place] [address] * (ABNORMAL) Urinalysis reflex to microscopic and culture Urine, clean voided (04/04/2025 7:52 AM LAB SUPPORT TECHNICIAN) Pathologist [facility] Color, ur YELLOW YELLOW [facility] Appearance, ur CLEAR CLEAR [facility] Specific gravity 1.012 1.001 - 1.035 [facility] pH, ur 5.5 5.0 - 8.0 [facility] Glucose, ur 2+(A) NEGATIVE [facility] Bilirubin, ur NEGATIVE NEGATIVE [facility] Ketones, ur NEGATIVE NEGATIVE [facility] Blood, ur NEGATIVE NEGATIVE [facility] Protein, ur, quant NEGATIVE NEGATIVE [facility] Nitrites, ur NEGATIVE NEGATIVE [facility] Leukocyte esterase, ur TRACE(A) NEGATIVE [facility] WBC, ur 0-5 < OR = 5 /HPF [facility] RBC, ur NONE SEEN < OR = 2 /HPF [facility] Epithelial cells, squamous, ur NONE SEEN < [...] reported. Urine, clean voided 04/04/2025 7:52 AM LAB SUPPORT TECHNICIAN 04/04/2025 7:53 AM LAB SUPPORT TECHNICIAN Narrative [facility] - 04/05/2025 6:05 PM LAB SUPPORT TECHNICIAN FASTING:YES FASTING: YES Mishel Soto MD LAB MICROBIOLOGY - GENERAL ORDERABLES Final Result [facility] [address] [place] [address] * CBC with auto differential (04/04/2025 7:52 AM LAB SUPPORT TECHNICIAN) Pathologist [facility] WBC 6.1 3.8 - 10.8 Thousand/u L [facility] RBC, POC 4.51 3.80 - 5.10 Million/uL [facility] Hgb 14.4 11.7 - 15.5 g/dL [facility] Hct 44.9 35.0 - 45.0 % [facility] MCV 99.6 80.0 - 100.0 fL [facility] MCH 31.9 27.0 - 33.0 pg [facility] MCHC 32.1 32.0 - 36.0 g/dL [facility] Comment: For adults, a slight decrease in the calculated MCHC value (in the range of 30 to 32 g/dL) is most likely not clinically significant; however, it should be interpreted with caution in correlation with other red cell parameters and the patient's clinical condition. Rdw 13.3 11.0 - 15.0 % [facility] Platelets 232 140 - 400 Thousand/u L [facility] MPV 10.3 7.5 - 12.5 fL [facility] Neutrophils, abs 2,745 1,500 - 7,800 cells/uL [facility] Lymphocytes, abs 2,495 850 - 3,900 cells/uL [facility] Monocyte abs 543 200 - 950 cells/uL [facility] Eosinophils, abs 268 15 - 500 cells/uL [facility] Basophils, abs 49 0 - 200 cells/uL [facility] Neutrophils 45 % [facility] Lymphocyte pct 40.9 % [facility] Monocytes 8.9 % [facility] Eosinophils 4.4 % [facility] Basophils 0.8 % [facility] Blood 04/04/2025 7:52 AM LAB SUPPORT TECHNICIAN 04/04/2025 7:53 AM LAB SUPPORT TECHNICIAN Narrative [facility] - 04/04/2025 7:59 PM LAB SUPPORT TECHNICIAN FASTING:YES FASTING: YES us Mishel Soto MD LAB BLOOD ORDERABL ES Final Result [facility] [address] [place] [address] * Urine culture (04/04/2025 7:52 AM LAB SUPPORT TECHNICIAN) Urine culture [facility] Comment: CULTURE, URINE, ROUTINE Micro Number: [id number] Test Status: Final Specimen Source: Urine Specimen Quality: Adequate Result: No Growth 04/04/2025 7:52 AM LAB SUPPORT TECHNICIAN 04/04/2025 7:53 AM LAB SUPPORT TECHNICIAN Narrative [facility] - 04/05/2025 6:05 PM LAB SUPPORT TECHNICIAN FASTING:YES FASTING: YES Mishel Soto MD LAB MICROBIOLOGY - GENERAL ORDERABLES Final Result [facility] [address] [place] [address] * (ABNORMAL) Comprehensive metabolic panel (04/04/2025 7:52 AM LAB SUPPORT TECHNICIAN) Pathologist [facility] Glucose 95 65 - 99 mg/dL [facility] Comment: Fasting reference interval BUN 28(H) 7 - 25 mg/dL [facility] Creatinine 1.31(H) 0.60 - 1.00 mg/dL [facility] eGFR 42(L) > OR = 60 mL/min/1.7 3m2 [facility] BUN/creat ratio 21 6 - 22 (calc) [facility] Sodium 139 135 - 146 mmol/L [facility] Potassium, pl 4.0 3.5 - 5.3 mmol/L [facility] Chloride 100 98 - 110 mmol/L [facility] CO2 34(H) 20 - 32 mmol/L [facility] Calcium 10.0 8.6 - 10.4 mg/dL [facility] Protein, sr 7.6 6.1 - 8.1 g/dL [facility] Albumin 4.5 3.6 - 5.1 g/dL [facility] GLOBULIN 3.1 1.9 - 3.7 g/dL (calc) [facility] Alb/glob ratio 1.5 1.0 - 2.5 (calc) [facility] Bilirubin, total 0.7 0.2 - 1.2 mg/dL [facility] Alk phos 80 37 - 153 U/L [facility] AST 20 10 - 35 U/L [facility] ALT (SGPT) 17 6 - 29 U/L [facility] Blood 04/04/2025 7:52 AM LAB SUPPORT TECHNICIAN 04/04/2025 7:53 AM LAB SUPPORT TECHNICIAN Narrative [facility] - 04/04/2025 5:11 PM LAB SUPPORT TECHNICIAN FASTING:YES FASTING: YES us Mishel Soto MD LAB BLOOD ORDERABL ES Final Result [facility] [address] [place] [address] * Vitamin D 25 hydroxy (02/20/2025 7:48 AM CDT) Vitamin D 25-OH 77 30 - 100 ng/mL [facility] Comment: Vitamin D Status 25-OH Vitamin D: Deficiency: <20 ng/mL Insufficiency: 20 - 29 ng/mL Optimal: > or = 30 ng/mL For 25-OH Vitamin D testing on patients on D2-supplementation and patients for whom quantitation of D2 and D3 fractions is required, the Quest[facility]ure[facility](TM) 25-OH VIT D, (D2,D3), LC/MS/MS is recommended: order code 45251 (patients >2yrs). Comment [facility] Comment: See Note 1 Note 1 For additional information, please refer to http://education.eCardio/faq/OFA077 (This link is being provided for informational/ educational purposes only.) 02/20/2025 7:48 AM CDT 02/20/2025 7:50 AM CDT Narrative [facility] - 02/21/2025 3:00 AM CDT FASTING:YES Patient Report History copied from and originally reported to client [id number] in site ([facility]) us David Chowdary MD LAB BLOOD ORDERABLES Final Re sult [email or web address] [address] [address] * (ABNORMAL) TSH (02/20/2025 7:48 AM CDT) TSH 0.11(L) 0.40 - 4.50 mIU/L [facility] 02/20/2025 7:48 AM CDT 02/20/2025 7:50 AM CDT Narrative [facility] - 02/21/2025 3:00 AM CDT FASTING:YES Patient Report History copied from and originally reported to client [id number] in site ([facility]) David Chowdary MD LAB BLOOD ORDERABLES Final Re sult Performing Organization Address [facility] Co de Phone Number [email or web address] [address] [place] [address] * T4, free (02/20/2025 7:48 AM CDT) Pathologist [facility] Free T4 1.7 0.8 - 1.8 ng/dL [facility] 02/20/2025 7:48 AM CDT 02/20/2025 7:50 AM CDT Narrative [facility] - 02/21/2025 3:00 AM CDT FASTING:YES Patient Report History copied from and originally reported to client [id number] in site ([facility]) David Chowdary MD LAB BLOOD ORDERABLES Final Re sult Performing Organization Address [facility] de Phone Number [email or web address] [address] [place] [address] * Hemoglobin A1c (02/20/2025 7:48 AM CDT) Pathologist [facility] Hgb A1C 5.4 <5.7 % of total Hgb [facility] Comment: For the purpose of screening for the presence of diabetes: <5.7% Consistent with the absence of diabetes 5.7-6.4% Consistent with increased risk for diabetes (prediabetes) > or =6.5% Consistent with diabetes This assay result is consistent with a decreased risk of diabetes. Currently, no consensus exists regarding use of hemoglobin A1c for diagnosis of diabetes in children. According to [place] [employer] (ADA) guidelines, hemoglobin A1c <7.0% represents optimal control in non- diabetic patients. Different metrics may apply to specific patient populations. Standards of Medical Care in Diabetes(ADA). 02/20/2025 7:48 AM CDT 02/20/2025 7:50 AM CDT Narrative [facility] - 02/21/2025 3:00 AM CDT FASTING:YES Patient Report History copied from and originally reported to client [id number] in site ([facility]) David Chowdary MD LAB BLOOD ORDERABLES Final Re sult [email or web address] [address] [place] [address] * (ABNORMAL) Lipid panel (02/20/2025 7:48 AM CDT) Pathologist [facility] Cholesterol 196 <200 mg/dL [facility] HDL 61 > OR = 50 mg/dL [facility] Triglycerides 106 <150 mg/dL [facility] LDL 114(H) mg/dL (calc) [facility] Comment: Reference range: <100 Desirable range <100 mg/dL for primary prevention; <70 mg/dL for patients with CHD or diabetic patients with > or = 2 CHD risk factors. LDL-C is now calculated using the Cordell-Sandra calculation, which is a validated novel method providing better accuracy than the Friedewald equation in the estimation of LDL-C. Cordell SS et al. BLAYNE. 2013;310(19): 7045-7509 (http://education.PolyActiva.Kiva/faq/PHA670) Chol/HDL ratio 3.2 <5.0 (calc) [facility] Non-HDL, (LDL+VLDL) 135(H) <130 mg/dL (calc) [facility] Comment: For patients with diabetes plus 1 major ASCVD risk factor, treating to a non-HDL-C goal of <100 mg/dL (LDL-C of <70 mg/dL) is considered a therapeutic option. 02/20/2025 7:48 AM CDT 02/20/2025 7:50 AM CDT Narrative [facility] - 02/21/2025 3:00 AM CDT FASTING:YES Patient Report History copied from and originally reported to client [id number] in site ([facility]) David Chowdary MD LAB BLOOD ORDERABLES Final Re sult Performing Organization Address [facility] Co de Phone Number [email or web address] [address] [place] [address] * (ABNORMAL) Basic metabolic panel (02/20/2025 7:48 AM CDT) Glucose 90 65 - 99 mg/dL [facility] Comment: Fasting reference interval BUN 22 7 - 25 mg/dL [facility] Creatinine 1.18(H) 0.60 - 1.00 mg/dL [facility] eGFR 47(L) > OR = 60 mL/min/1.7 3m2 [facility] BUN/creat ratio 19 6 - 22 (calc) [facility] Sodium 142 135 - 146 mmol/L [facility] Potassium, pl 4.0 3.5 - 5.3 mmol/L [facility] Chloride 106 98 - 110 mmol/L [facility] CO2 28 20 - 32 mmol/L [facility] Calcium 9.3 8.6 - 10.4 mg/dL [facility] 02/20/2025 7:48 AM CDT 02/20/2025 7:50 AM CDT Narrative [facility] - 02/21/2025 3:00 AM CDT FASTING:YES Patient Report History copied from and originally reported to client [id number] in site ([facility]) David Chowdary MD LAB BLOOD ORDERABLES Final Re sult Performing Organization Address [facility]/ZIP Co de Phone Number [facility] [address] [place] [address] * (ABNORMAL) Comprehensive metabolic panel (01/05/2025 10:42 AM CDT) Glucose 89 65 - 99 mg/dL [facility] Comment: Fasting reference interval BUN 25 7 - 25 mg/dL [facility] Creatinine 1.44(H) 0.60 - 1.00 mg/dL [facility] eGFR 37(L) > OR = 60 mL/min/1.7 3m2 [facility] BUN/creat ratio 17 6 - 22 (calc) [facility] Sodium 140 135 - 146 [...] GLOBULIN 2.9 1.9 - 3.7 g/dL (calc) [facility] Alb/glob ratio 1.6 1.0 - 2.5 (calc) [facility] Bilirubin, total 0.6 0.2 - 1.2 mg/dL [facility] Alk phos 67 37 - 153 U/L [facility] AST 25 10 - 35 U/L [facility] ALT (SGPT) 19 6 - 29 U/L [facility] Blood 01/05/2025 10:4 2 AM CDT 01/05/2025 10:43 AM CDT us Mishel Soto MD LAB BLOOD ORDERABL ES Final Result [facility] [address] [place] [address] * (ABNORMAL) CBC with auto differential (01/05/2025 10:41 AM CDT) WBC 5.2 3.8 - 10.8 Thousand/u L [facility] RBC, POC 4.45 3.80 - 5.10 Million/uL [facility] Hgb 14.7 11.7 - 15.5 g/dL [facility] Hct 45.3(H) 35.0 - 45.0 % [facility] MCV 101.8(H) 80.0 - 100.0 fL [facility] MCH 33.0 27.0 - 33.0 pg [facility] MCHC 32.5 32.0 - 36.0 g/dL [facility] Comment: For adults, a slight decrease in the calculated MCHC value (in the range of 30 to 32 g/dL) is most likely not clinically significant; however, it should be interpreted with caution in correlation with other red cell parameters and the patient's clinical condition. Rdw 13.3 11.0 - 15.0 % [facility] Platelets 203 140 - 400 Thousand/u L [facility] MPV 10.5 7.5 - 12.5 fL [facility] Neutrophils, abs 2,137 1,500 - 7,800 cells/uL [facility] Lymphocytes, abs 2,163 850 - 3,900 cells/uL [facility] Monocyte abs 614 200 - 950 cells/uL [facility] Eosinophils, abs 234 15 - 500 cells/uL [facility] Basophils, abs 52 0 - 200 cells/uL [facility] Neutrophils 41.1 % [facility] Lymphocyte pct 41.6 % [facility] Monocytes 11.8 % [facility] Eosinophils 4.5 % [facility] Basophils 1.0 % [facility] Blood 01/05/2025 10:4 1 AM CDT 01/05/2025 10:41 AM CDT Mishel Soto MD LAB BLOOD ORDERABL ES Final Result [facility] [address] [place] [address] * REFLEXIVE URINE CULTURE (01/05/2025 10:37 AM CDT) Urine culture [facility] Comment:NO CULTURE INDICATED 01/05/2025 10:3 7 AM CDT 01/05/2025 10:38 AM CDT Mishel Soto MD LAB MICROBIOLOGY - GENERAL ORDERABLES Final Result [email or web address] [address] [phone] * (ABNORMAL) Urinalysis reflex to microscopic and culture Urine, clean voided (01/05/2025 10:37 AM CDT) Color, ur YELLOW YELLOW [facility] Appearance, ur CLEAR CLEAR [facility] Specific gravity 1.009 1.001 - 1.035 [facility] pH, ur < OR = 5.0(A) 5.0 - 8.0 [facility] Glucose, ur 2+(A) NEGATIVE [facility] Bilirubin, ur NEGATIVE NEGATIVE [facility] Ketones, ur NEGATIVE NEGATIVE [facility] Blood, ur NEGATIVE NEGATIVE [facility] Protein, ur, quant NEGATIVE NEGATIVE [facility] Nitrites, ur NEGATIVE NEGATIVE [facility] Leukocyte esterase, ur NEGATIVE NEGATIVE [facility] WBC, ur NONE SEEN < OR = 5 /HPF [facility] RBC, ur NONE SEEN < OR = 2 /HPF [facility] Epithelial cells, squamous, ur NONE SEEN < OR = 5 /HPF [facility] Bacteria, ur, quant NONE SEEN NONE SEEN /HPF [facility] Hyaline cast NONE SEEN NONE SEEN /LPF [facility] Note [facility] Comment: This urine was analyzed for the presence of WBC, RBC, bacteria, casts, and other formed elements. Only those elements seen were reported. Urine, clean voided 01/05/2025 10:37 AM CDT 01/05/2025 10:38 AM CDT Mishel Soto MD LAB MICROBIOLOGY - GENERAL ORDERABLES Final Result [email or web address] [address] [place] [phone] from Last 3 Months Insurance MEDICARE [facility] MEDICARE MEDICARE [facility] MEDICARE SUPPLEMENT Care Teams Seismic Computer Relationship Specialty Start Date End Date David Chowdary MD PCP - General Internal Medicine 12/03/17 Mishel Soto MD [address] [facility] [address] [place] [address] Consulting Physician Rheumatology 10/24/24
--- OUTSIDE RECORDS SUMMARY | 2025-04-06 10:06 | XMS_ITS | Encounter Summary ---
Author Organization [facility] Healthcare Address [address] [place] [address] Care Team Providers Care Small Brake Form Operator Name Role Phone David Chowdary MD Primary Care Provider [phone] Mishel Soto MD Unavailable + Encounter Details Date Type Department Care Team (Late st Contact Info) Description 04/05/2024 Orders Only [facility] Information Management [address] [place] [address] Mishel Soto MD [address] [facility] [address] [place] [address] Social History Tobacco Use Types Packs/Day Years [...] AM CDT Legal Sex Female 3:33 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
--- OUTSIDE RECORDS SUMMARY | 2025-04-06 10:06 | XMS_ITS | Encounter Summary ---
Author Organization [facility] Healthcare Address [address] [place] [address] Care Team Providers Care Informatica Architect Name Role Phone David Chowdary MD Primary Care Provider [phone] Mishel Soto MD Unavailable + Encounter Details Date Type Department Care Team (Late st Contact Info) Description 04/06/[address] [facility] [id number] [place] [phone] [place] [id number] [place] [id number] Social History Tobacco Use Types Packs/Day Years [...] AM CDT Legal Sex Female 3:33 AM DIRECTOR CASE Gender Identity Female 08/18/2018 7:08 AM CDT Sexual Orientation Straight 08/18/2018 7: 08 AM CDT documented as of this encounter Miscellaneous Notes * Telephone Encounter - Stanley Ellis MA - 04/06/2025 9:41 AM DIRECTOR CASE Bone Density imaging requested from [facility] through [employer] [facility] CASE documented in this encounter Plan of Treatment Not on file documented as of this encounter Visit Diagnoses Not on filedocumented in this encounter Care Teams Informatica Architect Relationship Specialty Start Date End Date David Chowdary MD PCP - General Internal Medicine 12/03/17 Mishel Soto MD [address] [facility] [address] [place] [address] Consulting Physician Rheumatology 10/24/24 documented as of this encounter
--- OUTSIDE RECORDS SUMMARY | 2025-04-06 10:06 | XMS_ITS | Clinical Summary ---
Author Organization [facility] Address [facility] [place] [address] Care Team Providers Care Chamfering Machine Operator Name Role Phone David Chowdary MD Primary Care Provider Rhoda Dietrich MD Unavailable [phone] Allergies Active Allergy Reactions Criticality Noted Date [...] Take 1 tablet by mouth daily. Active [place] 3-6-9 Fatty Acids ([place] 3-6-9 COMPLEX) Cap [...] this topic Medical Devices Implanted Type Area Freight Sorter Device Identifier Shelf Expiration Date Model / Serial / Lot Bulkamid Urethra Bulking Agent - [id number] Implanted:Qty: 2 on 10/29/2023 by Brain Oscar MD at [facility] N/A: Urethra [employer] 04/23/2026 [id number] / / [id number] Insurance MEDICARE [facility] Care Teams Chamfering Machine Operator Relationship Specialty Start Date End Date David Chowdary MD [address] [place] [id number] PCP - General INTERNAL MEDICINE 03/16/20 Rhoda Dietrich MD [address] [place], [place] [id number] PULMONARY DISEASE 10/20/23
[2025-04-06] MEDS: ONDANSETRON INJ 4 MG/2 ML VIAL IV PUSH (11:58)
[2025-04-06] MEDS: DICYCLOMINE HCL INJ 20 MG/2 ML VIAL IM (12:01)
== END 2025-04-06 14:06 | disposition home or self-care (01) ==
PROVIDERS: Emergency Medicine; Emergency Provider Physician Assistant; PCP Internal Medicine
DX: R10.9 Unspecified abdominal pain (principal); N18.9 Chronic kidney disease, unspecified; I12.9 Hypertensive chronic kidney disease with stage 1 through stage 4 chronic kidney disease, or unspecified chronic kidney disease; J45.909 Unspecified asthma, uncomplicated; E53.8 Deficiency of other specified B group vitamins; E03.9 Hypothyroidism, unspecified; G47.33 Obstructive sleep apnea (adult) (pediatric); M81.0 Age-related osteoporosis without current pathological fracture; M06.9 Rheumatoid arthritis, unspecified; Z96.653 Presence of artificial knee joint, bilateral; Z86.16 Personal history of COVID-19; Z98.42 Cataract extraction status, left eye; Z98.41 Cataract extraction status, right eye; Z90.710 Acquired absence of both cervix and uterus; Z90.49 Acquired absence of other specified parts of digestive tract
CPT/HCPCS: 36415; 74177; 80053; 81001; 83690; 85025; 87086; 96372; 96374; 99284; J0500; J2405; Q9967